=== PATIENT | male | born 1940 | race Caucasian/White ===

== ENCOUNTER 2017-07-04 02:37 | Inpatient (IN) ==
--- NOTE | 2017-07-04 03:05 | Emergency Department Note ---
Disposition Clinical Impression: Acute renal failure Qualifiers: Acute renal failure type: unspecified Qualified Code(s): N17.9 - Acute kidney failure, unspecified Disposition: Admitted As Inpatient Condition: Fair Referrals: Unassigned,Provider [Non-Partnered Physician] - Forms: ED Satisfaction Letter Time of Disposition: 04:59 SOB HPI - General Chief Complaint: ED Shortness of Breath/Dyspnea Stated Complaint: difficulty in breathing, needs oxygen Time Seen by Provider: 07/04/17 02:42 Source: patient Mode of arrival: EMS Limitations: no limitations Nursing Notes Reviewed: Yes Vital Signs Reviewed: Yes - History of Present Illness 77-year-old male presents to the ED complaining of needing oxygen and having shortness of breath. Patient does have a history of COPD or any respiratory issues. He states that he was discharged from [facility] inpatient service yesterday patient stated that she was having kidney issues in he needed a renal artery stent to be placed. He stated they did not place it because he was having kidney issues and there were now weight and do it and he was with follow-up with them today. He said that while he was there he was having a hard time breathing because they gave him a lot of fluids and a bloated him and he was having edema. He stated they discharged him without oxygen when he was on oxygen while in the hospital. He states that today he just felt like he needed some oxygen and would feel better once that occurred. So he drove to the [facility] think in the emergency department was open in hopes that he could sign up and get oxygen at home. When he arrived the fire department and there said no that the ER department is not open and for him to be transferred here to [facility] for further evaluation. Patient is not complaining of any pain or anything at this time. He has no nausea vomiting, no peritoneal delays, no urinary problems as patient diarrhea. He states he has no shortness of breath at this time as he felt like he just needed some oxygen. He does not have any abdominal pain but says he does feel bloated after all the fluid was put into them. He says he does have a cardiac history and has a pacemaker. Has had no cardiac issues as of lately. He has no headache or blurry vision at this time. Has no other complaints at this time. - Related Data Allergies Allergy/AdvReac Type Severity Reaction Status Date / Time niacin Allergy Unknown See Verified 07/04/17 02:45 Comments simvastatin Allergy Unknown See Verified 07/04/17 02:45 Comments morphine AdvReac Unknown See Verified 07/04/17 02:45 Comments Constitutional: Denies: fever, chills, weakness, weight change Eyes: Denies: eye pain, eye discharge, vision change ENT ED: Denies: ear pain, throat pain, dental pain, hearing loss, epistaxis, congestion, dysphagia Cardiovascular: Denies: chest pain, palpitations, dyspnea on exertion, edema, syncope Respiratory: Denies: cough, dyspnea, wheezes, hemoptysis, stridor Gastrointestinal: Denies: abdominal pain, nausea, vomiting, diarrhea, constipation, hematemesis, melena, hematochezia Genitourinary: Denies: urgency, dysuria, frequency, hematuria Musculoskeletal: Denies: back pain, neck pain, arthralgia, myalgia Integumentary: Denies: rash, abrasion, lesions Neurological: Denies: headache, weakness, numbness, paresthesias, confusion, abnormal gait, vertigo Psychiatric: Denies: anxiety, depression, suicidal thoughts, homicidal thoughts , auditory hallucinations, visual hallucinations Endocrine: Denies: fatigue Hematological/Lymphatic: Denies: easy bleeding, easy bruising Allergic/Immunologic: Denies: facial swelling, urticaria Past Medical History - Past Medical History Medical history: Reports: CHF, coronary artery disease, diabetes, hyperlipidemia , hypertension Psychiatric history: Reports: no psych history - Social History Smoking Status: Former smoker Alcohol use: Reports: none Drug use: Reports: none Physical Exam - General Limitations: no limitations General appearance: alert - Head Head exam: atraumatic, normocephalic, normal inspection - Eye Eye exam: Present: normal appearance, PERRL, EOMI - Expanded Eye Exam Pupils: Left: reactive - ENT ENT exam: normal exam, normal oropharynx, mucous membranes moist - Neck Neck exam: Present: normal inspection, full ROM, trachea midline - Chest Chest inspection: Present: normal inspection, symmetric chest wall rise - Respiratory Respiratory exam: Present: normal lung sounds bilaterally - Cardiovascular Cardiovascular exam: Present: regular rate, normal rhythm, normal heart sounds - Abdominal Exam Abdominal exam: Present: soft, Non-Tender, distention (Mildly distended abdomen) . Absent: tenderness, guarding, rebound, rigidity - Extremities Exam Extremities exam: Present: normal inspection, full ROM, normal capillary refill , pedal edema (2+ pitting edema bilaterally). Absent: tenderness - Back Exam Back exam: Present: normal inspection, full ROM. Absent: tenderness - Neurological Exam Neurological exam: Present: alert, oriented X3 - Skin Skin exam: Present: warm, dry, intact, normal color Course Course Narrative: Residual amount since the ED complaining of needing oxygen. He was discharged recently from [facility] inpatient service where he states he need a renal artery stent due to kidney problems did not have it. He states he is bloated because he got a time of fluids he was there. At this time we put him on 2 L oxygen by nasal cannula and his sats are 98%. When the oxygen is off he states that he feels like he cannot catch his breath. 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 We will do a further workup including basic labs as well as a BNP, VBG, EKG and chest x-ray. Due to him needing oxygen and he is not able to get that at home most likely this patient will need to be admitted for hypoxia and needing oxygen - Reevaluation(s) Reevaluation #1: He was reevaluated and we recommended that he needs to be admitted for acute renal failure patient understands this and agreed to this. Time: 04:56 - Consultations Consultation #1: Spoke with Dr. Zelaya the hospitalist who agreed to admit the patient to the medicine service for acute renal failure. Vital Signs Temperature 97.4 F L 07/04/17 02:39 Pulse Rate 62 07/04/17 02:39 Respiratory Rate 18 07/04/17 02:39 Blood Pressure 137/63 07/04/17 02:39 O2 Sat by Pulse Oximetry 100 07/04/17 02:39 Temperature 97.4 F L 07/04/17 02:39 Pulse Rate 59 07/04/17 03:37 Respiratory Rate 16 07/04/17 03:37 Blood Pressure 132/65 07/04/17 03:37 O2 Sat by Pulse Oximetry 98 07/04/17 03:37 Oxygen Delivery Oxygen Delivery Nasal Cannula Shortness of Breath/Dyspnea - MDM Narrative Medical decision making narrative: 77-year-old male presents to the ED with hypoxia. [facility] looking [facility]. When he came here he was on 2 L nasal cannula and satting 100%. We did basic labs and we find a reason for the hypoxia. He was in acute renal failure and seemed to be volume overloaded as he had 2+ pitting edema bilaterally in the legs. Chest x-ray was normal. EKG had no acute findings. He did have an elevated creatinine of 2.6. All other labs were normal. He did have an elevated d-dimer of 511 but age-adjusted was within normal limits. So there was no need to have a CT angiogram done of his chest to rule out pulmonary embolism. Patient is admitted to Dr. Zelaya of the medicine service for acute renal failure. Patient agrees with this plan. - Medical Records Medical records reviewed: Yes I reviewed the patient's medical records. - Lab Data Lab results reviewed: Yes I reviewed the patient's lab results. Result diagrams: 07/04/17 03:09 07/04/17 03:09 Lab Results 07/04/17 07/04/17 07/04/17 Range/Units 03:09 03:09 03:09 WBC 10.2 (4.3-11.1) K/mcL RBC 3.94 L (4.19-5.50) M/mcL Hgb 11.2 L (12.9-16.9) g/dL Hct 33.6 L (37.5-50.1) % MCV 85.3 (83.0-100.0) fL MCH 28.4 (28.0-33.3) pg MCHC 33.3 (31.6-35.5) g/dL RDW 14.6 H (11.5-14.5) % Plt Count 128 L (140-400) K/mcL MPV 11.8 (9.4-12.4) fL Immature Gran % 0.6 (0-4) % Seg Neutrophils % 77.8 % Lymphocytes % 11.8 % Monocytes % 7.1 % Eosinophils % 2.5 % Basophils % 0.2 % Neutrophils # 7.9 (1.6-8.9) K/mcL Lymphocytes # 1.2 (0.6-4.6) K/mcL Monocytes # 0.7 (0.0-1.3) K/mcL Eosinophils # 0.3 (0.0-0.6) K/mcL Basophils # 0.0 (0.0-0.2) K/mcL D-Dimer 511 H (0-500) ng/mLFEU VBG pH (7.32-7.42) pH Units VBG pCO2 (41-51) mmHg VBG pO2 (25-40) mmHg VBG HCO3 (21-27) mEq/L Sodium 135 L (136-145) mEq/L Potassium 3.8 (3.5-4.5) mEq/L Chloride 93 L (98-109) mEq/L Carbon Dioxide 28 (19-29) mEq/L BUN 41 H (8-26) mg/dL Creatinine 2.59 H (0.72-1.25) mg/dL Est GFR ( Amer) 29 L (> 60) Est GFR (Non-Af Amer) 24 L (> 60) BUN/Creatinine Ratio 16 (6-26) Glucose 235 H (70-99) mg/dL Calculated Osmolality 298 (280-300) Lactic Acid (0.5-2.2) mmol/L Calcium 9.3 (8.6-10.8) mg/dL Total Bilirubin 0.9 (0.2-1.2) mg/dL Direct Bilirubin 0.4 (0.0-0.5) mg/dL Indirect Bilirubin 0.5 (0.0-1.2) mg/dL AST 21 (5-34) Units/L ALT 28 (0-55) Units/L Alkaline Phosphatase 112 (38-126) Units/L Troponin I (0-0.03) ng/mL B-Natriuretic Peptide (0-100) pg/mL Serum Total Protein 6.7 (6.0-8.3) g/dL Albumin 3.6 (3.5-5.0) g/dL Globulin 3.1 (2.4-3.5) g/dL Albumin/Globulin Ratio 1.2 (1.1-2.2) 07/04/17 07/04/17 07/04/17 Range/Units 03:09 03:09 03:09 WBC (4.3-11.1) K/mcL RBC (4.19-5.50) M/mcL Hgb (12.9-16.9) g/dL Hct (37.5-50.1) % MCV (83.0-100.0) fL MCH (28.0-33.3) pg MCHC (31.6-35.5) g/dL RDW (11.5-14.5) % Plt Count (140-400) K/mcL MPV (9.4-12.4) fL Immature Gran % (0-4) % Seg Neutrophils % % Lymphocytes % % Monocytes % % Eosinophils % % Basophils % % Neutrophils # (1.6-8.9) K/mcL Lymphocytes # (0.6-4.6) K/mcL Monocytes # (0.0-1.3) K/mcL Eosinophils # (0.0-0.6) K/mcL Basophils # (0.0-0.2) K/mcL D-Dimer (0-500) ng/mLFEU VBG pH (7.32-7.42) pH Units VBG pCO2 (41-51) mmHg VBG pO2 (25-40) mmHg VBG HCO3 (21-27) mEq/L Sodium (136-145) mEq/L Potassium (3.5-4.5) mEq/L Chloride (98-109) mEq/L Carbon Dioxide (19-29) mEq/L BUN (8-26) mg/dL Creatinine (0.72-1.25) mg/dL Est GFR ( Amer) (> 60) Est GFR (Non-Af Amer) (> 60) BUN/Creatinine Ratio (6-26) Glucose (70-99) mg/dL Calculated Osmolality (280-300) Lactic Acid 1.1 (0.5-2.2) mmol/L Calcium (8.6-10.8) mg/dL Total Bilirubin (0.2-1.2) mg/dL Direct Bilirubin (0.0-0.5) mg/dL Indirect Bilirubin (0.0-1.2) mg/dL AST (5-34) Units/L ALT (0-55) Units/L Alkaline Phosphatase (38-126) Units/L Troponin I 0.03 (0-0.03) ng/mL B-Natriuretic Peptide 843 H (0-100) pg/mL Serum Total Protein (6.0-8.3) g/dL Albumin (3.5-5.0) g/dL Globulin (2.4-3.5) g/dL Albumin/Globulin Ratio (1.1-2.2) 07/04/17 Range/Units 03:22 WBC (4.3-11.1) K/mcL RBC (4.19-5.50) M/mcL Hgb (12.9-16.9) g/dL Hct (37.5-50.1) % MCV (83.0-100.0) fL MCH (28.0-33.3) pg MCHC (31.6-35.5) g/dL RDW (11.5-14.5) % Plt Count (140-400) K/mcL MPV (9.4-12.4) fL Immature Gran % (0-4) % Seg Neutrophils % % Lymphocytes % % Monocytes % % Eosinophils % % Basophils % % Neutrophils # (1.6-8.9) K/mcL Lymphocytes # (0.6-4.6) K/mcL Monocytes # (0.0-1.3) K/mcL Eosinophils # (0.0-0.6) K/mcL Basophils # (0.0-0.2) K/mcL D-Dimer (0-500) ng/mLFEU VBG pH 7.40 (7.32-7.42) pH Units VBG pCO2 59 H (41-51) mmHg VBG pO2 38 (25-40) mmHg VBG HCO3 36.5 H (21-27) mEq/L Sodium (136-145) mEq/L Potassium (3.5-4.5) mEq/L Chloride (98-109) mEq/L Carbon Dioxide (19-29) mEq/L BUN (8-26) mg/dL Creatinine (0.72-1.25) mg/dL Est GFR ( Amer) (> 60) Est GFR (Non-Af Amer) (> 60) BUN/Creatinine Ratio (6-26) Glucose (70-99) mg/dL Calculated Osmolality (280-300) Lactic Acid (0.5-2.2) mmol/L Calcium (8.6-10.8) mg/dL Total Bilirubin (0.2-1.2) mg/dL Direct Bilirubin (0.0-0.5) mg/dL Indirect Bilirubin (0.0-1.2) mg/dL AST (5-34) Units/L ALT (0-55) Units/L Alkaline Phosphatase (38-126) Units/L Troponin I (0-0.03) ng/mL B-Natriuretic Peptide (0-100) pg/mL Serum Total Protein (6.0-8.3) g/dL Albumin (3.5-5.0) g/dL Globulin (2.4-3.5) g/dL Albumin/Globulin Ratio (1.1-2.2) - Radiology Data Radiology results reviewed: Yes I reviewed the patient's radiology results. - EKG Data EKG attestation: Yes I reviewed and interpreted this EKG. EKG results narrative: This EKG was done at 0 253 and review myself and the attending. This shows no electrical atrial paced rhythm at a rate of 60 bpm, AR interval 312, QRS 141, QTC 513 with a normal axis. There are no acute ST or T wave changes this time. There is no old EKG to compare with at this time. My overall impression is a and electronic atrial paced rhythm with no acute changes. EKG shows normal: Reports: axis, intervals Rate: Reports: normal Rhythm: Reports: other (Atrial paced rhythm) [place]/QRS: Reports: normal Interpretation: Reports: no acute changes, normal EKG
--- NOTE | 2017-07-04 03:07 | Emergency Department Note ---
START Narrative - START START: I examined this patient and my medical decision-making was reviewed with the Resident Physician. I agree with the documented findings, disposition and treatment plan as described except to the extent set forth below. Male patient with concern for dyspnea and hypoxia. Obtain basic labs as well as chest x- ray. Disposition will be pending results of imaging and laboratory analyses. No acute distress at this time. No hypoxia on arrival.
[2017-07-04 03:16] LABS: Basophils % 0.2 %; Eosinophils # 0.3 K/mcL (0.0-0.6); Eosinophils % 2.5 %; Hematocrit 33.6 % (37.5-50.1); Hemoglobin 11.2 g/dL (12.9-16.9); Immature Granulocytes % 0.6 % (0-4); Lymphocytes # 1.2 K/mcL (0.6-4.6); Lymphocytes % 11.8 %; Mean Corpuscular HGB Conc 33.3 g/dL (31.6-35.5); Mean Corpuscular Hemoglobin 28.4 pg (28.0-33.3); Mean Corpuscular Volume 85.3 fL (83.0-100.0); Mean Platelet Volume 11.8 fL (9.4-12.4); Monocytes # 0.7 K/mcL (0.0-1.3); Monocytes % 7.1 %; Neutrophils # 7.9 K/mcL (1.6-8.9); Platelet Count 128 K/mcL (140-400); Red Blood Count 3.94 M/mcL (4.19-5.50); Red Cell Distribution Width 14.6 % (11.5-14.5); Segmented Neutrophils % 77.8 %
[2017-07-04 03:30] LABS: Albumin 3.6 g/dL (3.5-5.0); Albumin/Globulin Ratio 1.2 (1.1-2.2); Bilirubin,Direct 0.4 mg/dL (0.0-0.5); Bilirubin,Indirect 0.5 mg/dL (0.0-1.2); Bilirubin,Total 0.9 mg/dL (0.2-1.2); Calcium 9.3 mg/dL (8.6-10.8); Globulin 3.1 g/dL (2.4-3.5); Potassium 3.8 mEq/L (3.5-4.5); Total Protein 6.7 g/dL (6.0-8.3)
[2017-07-04 03:30] LABS: VBG HCO3 36.5 mEq/L (21-27); VBG PH 7.4 pH Units (7.32-7.42)
[2017-07-04] MEDS ORDERED: *HR* OxyCODONE Immed Rel 5 MG TABLET PO PRN (07:58)
[2017-07-04] MEDS ORDERED: Naloxone 0.4 MG/ML INJ IVP PRN (07:58)
[2017-07-04] MEDS ORDERED: Acetaminophen 325 MG TABLET PO PRN (07:58)
[2017-07-04] MEDS ORDERED: Ondansetron 4 MG/2 ML VIAL IVP PRN (07:58)
[2017-07-04] MEDS ORDERED: Ipratropium/Albuterol Neb 3 ML IH PRN (08:01)
[2017-07-04] MEDS ORDERED: Nitroglycerin 0.4 MG TAB.SUBL SL PRN (08:01)
--- NOTE | 2017-07-04 08:08 | Internal Med History&Physical ---
Date of Encounter: 07/04/17 Time of Encounter: 08:06 Assessment and Plan (1) Systolic and diastolic CHF, acute on chronic Current visit: Yes Status: Acute Hypoxic respiratory failure likely secondary to systolic and diastolic CHF exacerbation Likely related to acute renal failure Lasix 20 mg IV twice a day, strict I's and O's and daily weight Oxygen therapy Adjust dose of Lasix Omeprazole for GI prophylaxis and Eliquis for DVT prophylaxis. The patient will be admitted for observation. Full code. Time spent on this admission 40 minutes. High risk due to hypoxia (2) Acute renal failure superimposed on stage 3 chronic kidney disease Current visit: Yes Status: Acute Acute on chronic renal failure May decrease dose of Lasix or hold it if worsening Consider nephrology consultation not improving His renal failure may be caused also by his history of renal artery stenosis, follows at [facility] Qualifiers: Acute renal failure type: unspecified Qualified Code(s): N17.9 - Acute kidney failure, unspecified; N18.3 - Chronic kidney disease, stage 3 (moderate) (3) Diabetes Current visit: Yes Status: Acute Continue insulin sliding scale Qualifiers: Diabetes mellitus type: type 2 Diabetes mellitus complication status: with circulatory complication Diabetes mellitus complication detail: with other circulatory complications Diabetes mellitus half-way insulin use: with adjunct faculty for medical terminology use Qualified Code(s): E11.59 - Type 2 diabetes mellitus with other circulatory complications; 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 Pisano is a 77 year old male with a past medical history of diastolic and systolic CHF, COPD not oxygen dependent, CAD, chronic atrial fibrillation on Eliquis, who was just discharged from [facility] yesterday. The patient said that he was admitted in order to have a stent in his right femoral artery and one of his renal arteries, unfortunately his creatinine worsened during his stay at [facility]. His last creatinine over there was 1.8 and today over here is 2.59, BNP is 843, chest x-ray shows minimal congestion with a right lower lobe linear opacity likely atelectasis . D-dimer was 511 but was normal once the number was adjusted to his age. [facility], he was hypoxic desaturating down to the 80s. Complaining of difficulty breathing since yesterday. Denies any other complaints Past Med Surg Social Fam HX - Past Medical History Medical history: CHF (Systolic and diastolic, last echocardiogram at this time see from March 2017 shows an ejection fraction of 50-54%, before that he was 45%) , COPD (Not oxygen dependent), coronary artery disease (Status post CABG), CVA, diabetes (Insulin-dependent), hyperlipidemia, hypertension, peripheral artery disease, renal disease (Chronic kidney disease stage III), other (Chronic atrial fibrillation on anticoagulation with Eliquis, peripheral artery disease, gout) Psychiatric history: no psych history - Past Surgical History Surgical History: angioplasty/stent, cholecystectomy, coronary bypass (CABG), LE stent(s), pacemaker/AICD, other (Endarterectomies) - Social History Smoking Status: Former smoker Alcohol use: none Drug use: none - Additional Family History Additional family history: Father with CAD. Medications: Eliquis 5 mg twice a day, allopurinol 200 mg daily, amiodarone 200 mg daily, aspirin 81 mg daily, atorvastatin 80 mg daily, carvedilol 25 minutes twice a day, Plavix, Lasix 40 mg daily, isosorbide mononitrate 60 mg daily, Lantus 22 units in the morning, OxyContin 10 mg twice a day, Tradjenta family is daily, nitroglycerin as needed Internal Medicine - H&P: Meds 3 Allergy/AdvReac Type Severity Reaction Status Date / Time niacin Allergy Unknown See Verified 07/04/17 02:45 Comments simvastatin Allergy Unknown See Verified 07/04/17 02:45 Comments morphine AdvReac Unknown See Verified 07/04/17 02:45 Comments All Systems PM: A 10-system review of systems was performed and is negative for pertinent findings except as documented above in the HPI. Review of systems: No chest pain, no abdominal pain, no dysuria. Says that his legs have been more swollen especially his abdomen has become more swollen than usual. Other systems out of the 10 reviewed were negative - Constitutional Vitals: Temp Pulse Resp BP Pulse Ox 97.5 F L 71 16 129/68 97 09/08/17 05:58 07/04/17 05:58 07/04/17 05:58 07/04/17 05:58 07/04/17 05:58 General appearance: Present: A&O X 3 - Head Head exam: Present: atraumatic, normocephalic - Eye Eye exam: Present: PERRL, conjuntiva pink, sclera anicteric Pupils: Present: PERRL - Neck Neck exam general surgery: Present: supple, trachea midline. Absent: lymphadenopathy - Respiratory Respiratory exam: Present: CTAB, rales (Minimal bibasilar fine crackles). Absent: accessory muscle use, rhonchi, wheezes - Cardiovascular Cardiovascular exam: Present: RRR, +S1, +S2. Absent: diastolic murmur, gallop, rubs, systolic murmur - GI/Abdominal GI/Abdominal exam: Present: distended (Abdominal distention), normal bowel sounds, soft, no peritoneal signs. Absent: tenderness - Extremities Exam Extremities exam: Present: pedal edema (+1 nonpitting edema in both lower extremities), warm, radial pulses palpable and symmetrical. Absent: calf tenderness, cyanotic - Neurological Exam Neurological exam: Present: CN II-XII intact, oriented X3, no focal deficits. Absent: pronater drift, facial droop, speech deficit - Skin Skin exam: Present: dry, intact Internal Med - H&P Results - Labs CBC & Chem 7: 07/04/17 03:09 07/04/17 03:09
[2017-07-04] MEDS: Insulin DETEMIR 100 UNIT/ML X5UNITS SQ SCH (09:08)
[2017-07-04] MEDS: Isosorbide MONOnitrate (24 HR) 60 MG TAB.ER.24H PO SCH (09:09)
[2017-07-04] MEDS: Aspirin Enteric Coated 81 MG Tablet PO SCH (09:09)
[2017-07-04] MEDS: APIXABAN 5 MG TABLET PO SCH ×2 (09:09→20:06)
[2017-07-04] MEDS: *HR* Amiodarone 200 MG TABLET PO SCH (09:09)
[2017-07-04] MEDS ORDERED: Dextrose Gel 15 GM PO PRN ×2 (09:10)
[2017-07-04] MEDS ORDERED: D5% in Water 1,000 ML IVC PRN (09:10)
[2017-07-04] MEDS: Lactulose Oral Soln 20 GM/30 ML UDC PO SCH ×2 (09:10→20:06)
[2017-07-04] MEDS ORDERED: *HR* Dextrose 50 % in Water (Syg) 50 ML SYRINGE IVP PRN (09:10)
[2017-07-04] MEDS: Furosemide 20 MG/2 ML VIAL IVP SCH ×2 (09:11→20:06)
[2017-07-04] MEDS: Insulin LISPRO 300 UNITS/3 ML VIAL SQ SCH ×3 (11:16→21:00)
--- NOTE | 2017-07-04 15:43 | Electrocardiograph Report ---
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
[2017-07-04] MEDS: *HR* OxyCODONE ER (12 HR) 10 MG TABLET PO SCH (16:40)
[2017-07-05] MEDS: *HR* OxyCODONE ER (12 HR) 10 MG TABLET PO SCH ×2 (05:44→17:15)
[2017-07-05 05:54] LABS: Hematocrit 31.2 % (37.5-50.1); Hemoglobin 10.4 g/dL (12.9-16.9); Mean Corpuscular HGB Conc 33.3 g/dL (31.6-35.5); Mean Corpuscular Hemoglobin 28.9 pg (28.0-33.3); Mean Corpuscular Volume 86.7 fL (83.0-100.0); Mean Platelet Volume 12.7 fL (9.4-12.4); Platelet Count 124 K/mcL (140-400); Red Cell Distribution Width 14.6 % (11.5-14.5)
[2017-07-05 06:06] LABS: Potassium 3.7 mEq/L (3.5-4.5)
[2017-07-05] MEDS: Isosorbide MONOnitrate (24 HR) 60 MG TAB.ER.24H PO SCH (07:54)
[2017-07-05] MEDS: Furosemide 20 MG/2 ML VIAL IVP SCH (07:54)
[2017-07-05] MEDS: Lactulose Oral Soln 20 GM/30 ML UDC PO SCH ×2 (07:54→21:42)
[2017-07-05] MEDS: Aspirin Enteric Coated 81 MG Tablet PO SCH (07:55)
[2017-07-05] MEDS: Insulin LISPRO 300 UNITS/3 ML VIAL SQ SCH ×4 (07:55→21:43)
[2017-07-05] MEDS: Insulin DETEMIR 100 UNIT/ML X5UNITS SQ SCH (07:55)
[2017-07-05] MEDS: APIXABAN 5 MG TABLET PO SCH ×2 (07:55→21:43)
[2017-07-05] MEDS: *HR* Amiodarone 200 MG TABLET PO SCH (07:55)
[2017-07-05] MEDS: Spironolactone 25 MG TABLET PO SCH (11:57)
--- NOTE | 2017-07-05 13:13 | Internal Med Progress Note ---
<Mary AnnWallace - Last Filed: 07/05/17 13:09> Date of Encounter: 07/05/17 Time of Encounter: 08:00 - Assessment and plan (1) Acute renal failure superimposed on stage 3 chronic kidney disease Current Visit: Yes Status: Acute Assessment and plan: - Reported history of stage III chronic kidney disease - BUN/creatinine on admission was 41/2.59, this morning was 43/3.09 - Possible etiologies include diabetic nephropathy versus hypertension versus reported renal artery stenosis? - Continue IV Lasix for gentle diuresis, decrease dosage to 20 mg IV daily - Add spironolactone 25 mg daily - We will consider nephrology consults if condition does not improve - We will rule out post obstructive etiologies with bladder scan and retroperitoneal ultrasound this afternoon Qualifiers: Acute renal failure type: unspecified Qualified Code(s): N17.9 - Acute kidney failure, unspecified; N18.3 - Chronic kidney disease, stage 3 (moderate) (2) Systolic and diastolic CHF, acute on chronic Current Visit: Yes Status: Acute Assessment and plan: - Self-reported history of systolic and diastolic CHF, no records available, have requested records from [facility] - Chest x-ray in the emergency department showed stable cardiomegaly without active process, generalized lower extremity and abdominal edema, resolved upper extremity edema - BNP of 843, troponin negative - Continue Lasix 20 mg IV daily - Strict I's and O's - Supplemental oxygen as needed (3) Diabetes Current Visit: Yes Status: Acute Assessment and plan: - Most recent blood sugar of 138 - Low-dose Sliding-scale insulin - We will obtain A1c Qualifiers: Diabetes mellitus type: type 2 Diabetes mellitus complication status: with circulatory complication Diabetes mellitus complication detail: with other circulatory complications 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 Qualified Code(s): E11.59 - Type 2 diabetes mellitus with other circulatory complications; Z79.4 - retirement (current) use of insulin (4) A-fib Current Visit: Yes Status: Acute Assessment and plan: - Rate controlled at 65 bpm - Anticoagulated on eliquis - Continue carvedilol 25 mg twice a day Qualifiers: Atrial fibrillation type: chronic Qualified Code(s): I48.2 - Chronic atrial fibrillation (5) Peripheral artery disease Current Visit: Yes Status: Acute Assessment and plan: - Stable, continue home meds (6) DVT prophylaxis Current Visit: Yes Status: Acute Assessment and plan: Anticoagulated on eliquis for atrial fibrillation - Time Spent With Patient 25 - 35 minutes - Subjective Interval history: Patient was seen and examined at bedside this morning. He states he is feeling better this morning, without any complaints of shortness of breath, cough, fevers, chills. He is speaking in full sentences on 2.5 L of supplemental auction. He states his shortness of breath is improved and he is complaining of only mild lower extremity edema at this time. He reports he was recently discharged from [facility] and was told that he may need a stent in his leg and/or kidney. We are attempting to obtain their records. - Constitutional Vitals: Temp Pulse Resp BP Pulse Ox 98.1 F 63 18 105/55 94 07/05/17 10:50 07/05/17 10:50 07/05/17 10:50 07/05/17 10:50 07/05/17 10:50 General appearance: Present: A&O X 3 Exam: Gen.: Vitals noted. No acute distress. AAOx3, speaking in full sentences HEENT: PERRL/EOMI, oropharynx clear, Normocephalic, atraumatic, MMM Neck: Supple. No adenopathy. Cardiac: RRR, no murmur, +S1/S2 Pulmonary: Bilateral rales in lower lobes Abdomen: possible mild fluid wave, soft, nontender, BS noted, no guarding Back: Nontender throughout. MSK: ROM intact, no joint swelling noted Extremities: no BLE edema appreciated, nontender calf, no cyanosis or clubbing Neuro: A&Ox3, moves all extremities, no focal deficits Psych: Appropriate mood and behavior Internal Medicine: Result - Labs CBC & Chem 7: 07/05/17 04:38 07/05/17 04:38 Labs: Short CBC 07/05/17 Range/Units 04:38 WBC 10.5 (4.3-11.1) K/mcL Hgb 10.4 L (12.9-16.9) g/dL Hct 31.2 L (37.5-50.1) % Plt Count 124 L (140-400) K/mcL BMP 07/05/17 04:38 Sodium 140 Potassium 3.7 Chloride 98 Carbon Dioxide 30 H BUN 43 H Creatinine 3.09 H Glucose 138 H Calcium 9.0 - ABG Interpretation ABG results: PT/INR, D-dimer D-Dimer 511 ng/mLFEU (0-500) H 07/04/17 03:09 Consult Discharge Plan - Plan [facility]errals: [facility] [Primary Care Provider[facility] - 07/14/17 10:00 am (Please fax driss paper work to [phone]-the [facility]) <Joshua Anderson - Last Filed: 07/05/17 18:20> Date of Encounter: 07/05/17 - Assessment and plan (1) Systolic and diastolic CHF, acute on chronic Current Visit: Yes Status: Acute (2) A-fib Current Visit: Yes Status: Acute Qualifiers: Atrial fibrillation type: chronic Qualified Code(s): I48.2 - Chronic atrial fibrillation (3) Acute renal failure superimposed on stage 3 chronic kidney disease Current Visit: Yes Status: Acute Qualifiers: Acute renal failure type: unspecified Qualified Code(s): N17.9 - Acute kidney failure, unspecified; N18.3 - Chronic kidney disease, stage 3 (moderate) (4) Diabetes Current Visit: Yes Status: Acute Qualifiers: Diabetes mellitus type: type 2 Diabetes mellitus complication status: with circulatory complication Diabetes mellitus complication detail: with other circulatory complications Diabetes mellitus residential insulin use: with residential use Qualified Code(s): E11.59 - Type 2 diabetes mellitus with other circulatory complications; 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 (5) Peripheral artery disease Current Visit: Yes Status: Acute - Constitutional Vitals: Temp Pulse Resp BP Pulse Ox 98.4 F 66 16 110/59 96 07/05/17 15:54 07/05/17 15:54 07/05/17 15:54 07/05/17 15:54 07/05/17 15:54 Internal Medicine: Result - Labs CBC & Chem 7: 07/05/17 04:38 07/05/17 04:38 Labs: Short CBC 07/05/17 Range/Units 04:38 WBC 10.5 (4.3-11.1) K/mcL Hgb 10.4 L (12.9-16.9) g/dL Hct 31.2 L (37.5-50.1) % Plt Count 124 L (140-400) K/mcL BMP 07/05/17 04:38 Sodium 140 Potassium 3.7 Chloride 98 Carbon Dioxide 30 H BUN 43 H Creatinine 3.09 H Glucose 138 H Calcium 9.0 - ABG Interpretation ABG results: PT/INR, D-dimer D-Dimer 511 ng/mLFEU (0-500) H 07/04/17 03:09 - Impressions Impressions Retroperitoneum Ultrasound 07/05/17 15:00 IMPRESSION: Unremarkable ultrasound of the kidneys. Specifically, no hydronephrosis. D/ / Wallace Chavis / Wallace Chavis Interpreting Provider: Wallace Chavis - Attending Attestation I examined this patient and my medical decision-making was reviewed with the Resident Physician on 07/05/17. I agree with the documented findings, disposition and treatment plan as described except to the extent set forth below. Mr. Pisano is currently in observation for acute exac CHF and KELLI on CKD. He remains moderate to high risk due to potential for worsening resp status. Mr. Pisano feels somewhat better today. He is concerned about kidneys and heart. No fever or chills. No CP. Exam Alert. Comfortable Mucus membranes dry Heart reg No wheeze. Abd soft Some edema present I/P 1. CHF exac 2. CKD Further diagnoses and plan as above.
[2017-07-06] MEDS: *HR* OxyCODONE ER (12 HR) 10 MG TABLET PO SCH ×2 (05:32→18:25)
[2017-07-06 07:46] LABS: Hematocrit 28.8 % (37.5-50.1); Hemoglobin 9.2 g/dL (12.9-16.9); Mean Corpuscular HGB Conc 31.9 g/dL (31.6-35.5); Mean Corpuscular Hemoglobin 27.7 pg (28.0-33.3); Mean Corpuscular Volume 86.7 fL (83.0-100.0); Mean Platelet Volume 12.3 fL (9.4-12.4); Platelet Count 120 K/mcL (140-400); Red Blood Count 3.32 M/mcL (4.19-5.50); Red Cell Distribution Width 14.7 % (11.5-14.5)
[2017-07-06 07:49] LABS: Calcium 8.8 mg/dL (8.6-10.8); Potassium 3.7 mEq/L (3.5-4.5)
[2017-07-06] MEDS: Lactulose Oral Soln 20 GM/30 ML UDC PO SCH ×2 (08:30→21:16)
[2017-07-06] MEDS: *HR* Amiodarone 200 MG TABLET PO SCH (08:30)
[2017-07-06] MEDS: Aspirin Enteric Coated 81 MG Tablet PO SCH (08:30)
[2017-07-06] MEDS: APIXABAN 5 MG TABLET PO SCH ×2 (08:30→21:15)
[2017-07-06] MEDS: Spironolactone 25 MG TABLET PO SCH (08:30)
[2017-07-06] MEDS: Isosorbide MONOnitrate (24 HR) 60 MG TAB.ER.24H PO SCH (08:30)
[2017-07-06] MEDS: Insulin LISPRO 300 UNITS/3 ML VIAL SQ SCH ×4 (08:31→21:26)
[2017-07-06] MEDS: Furosemide 20 MG/2 ML VIAL IVP SCH (08:31)
[2017-07-06] MEDS: Insulin DETEMIR 100 UNIT/ML X5UNITS SQ SCH (08:46)
--- NOTE | 2017-07-06 08:54 | Internal Med Progress Note ---
<Wallace Reese - Last Filed: 07/06/17 10:29> Date of Encounter: 07/06/17 Time of Encounter: 08:52 - Assessment and plan (1) Acute renal failure superimposed on stage 3 chronic kidney disease Current Visit: Yes Status: Acute Assessment and plan: - Reported history of stage III chronic kidney disease, request for old medical records pending - BUN/creatinine on admission was 41/2.59, this morning was 42/2.64. Improved - Possible etiologies include diabetic nephropathy versus hypertension versus reported renal artery stenosis and he reports from [facility] - We will consider nephrology consults if condition does not improve. - Retroperitoneal ultrasound yesterday was unremarkable, post void volume bladder scan was 160 mL, unlikely obstructive etiology Qualifiers: Acute renal failure type: unspecified Qualified Code(s): N17.9 - Acute kidney failure, unspecified; N18.3 - Chronic kidney disease, stage 3 (moderate) (2) Systolic and diastolic CHF, acute on chronic Current Visit: Yes Status: Acute Assessment and plan: - Self-reported history of systolic and diastolic CHF, no records available, have requested records from [facility] - Chest x-ray in the emergency department showed stable cardiomegaly without active process, generalized lower extremity and abdominal edema, resolved upper extremity edema - BNP of 843, troponin negative - Currently tolerating room air without complaints. No further lower extremity edema - Continue Lasix 20 mg IV daily - Strict I's and O's. Essentially even yesterday. - Supplemental oxygen as needed (3) Diabetes Current Visit: Yes Status: Acute Assessment and plan: - Most recent blood sugar of 128 - Low-dose Sliding-scale insulin - We will obtain A1c Qualifiers: Diabetes mellitus type: type 2 Diabetes mellitus complication status: with circulatory complication Diabetes mellitus complication detail: with other circulatory complications Diabetes mellitus retirement insulin use: with retirement use Qualified Code(s): E11.59 - Type 2 diabetes mellitus with other circulatory complications; Z79.4 - care home (current) use of insulin (4) A-fib Current Visit: Yes Status: Acute Assessment and plan: - Rate controlled at 64 bpm - Anticoagulated on eliquis - Continue carvedilol 25 mg twice a day Qualifiers: Atrial fibrillation type: chronic Qualified Code(s): I48.2 - Chronic atrial fibrillation (5) Peripheral artery disease Current Visit: Yes Status: Acute Assessment and plan: - Stable, continue home meds (6) DVT prophylaxis Current Visit: Yes Status: Acute Assessment and plan: Anticoagulated on eliquis for atrial fibrillation - Time Spent With Patient 25 - 35 minutes - Subjective Interval history: Patient was seen and examined at bedside this morning. He states he is feeling "pretty good" and has no complaints at this time. His breathing is improved and he is on room air speaking in full sentances. He denies any symptoms of f/c, SOB , CP. He states he moved his bowels twice yesterday which is a little unusual for him but denies diarrhea, blood. - Constitutional Vitals: Temp Pulse Resp BP Pulse Ox 98.1 F 61 17 111/52 93 07/06/17 07:23 07/06/17 07:23 07/06/17 07:23 07/06/17 07:23 07/06/17 07:23 General appearance: Present: A&O X 3 Exam: Gen.: Vitals noted. No acute distress. AAOx3 HEENT: PERRL/EOMI, oropharynx clear, Normocephalic, atraumatic, moist mucous membranes Neck: Supple. No adenopathy. Cardiac: RRR, no murmur, +S1/S2 Pulmonary: Mild Rales in left lower base otherwise CTA bilaterally, no wheezes, rales or rhonchi, equal chest expansion Abdomen: soft, nontender, BS noted, no guarding Back: Nontender throughout. MSK: ROM intact, no joint swelling noted Extremities: no BLE edema, nontender calf, no cyanosis or clubbing Neuro: A&Ox3, moves all extremities, no focal deficits Psych: Appropriate mood and behavior Internal Medicine: Result - Labs CBC & Chem 7: 07/06/17 06:32 07/06/17 06:32 Labs: Short CBC 07/06/17 Range/Units 06:32 WBC 8.1 (4.3-11.1) K/mcL Hgb 9.2 L (12.9-16.9) g/dL Hct 28.8 L (37.5-50.1) % Plt Count 120 L (140-400) K/mcL [facility] 07/06/17 06:32 Sodium 139 Potassium 3.7 Chloride 98 Carbon Dioxide 33 H BUN 42 H Creatinine 2.64 H Glucose 128 H Calcium 8.8 - ABG Interpretation ABG results: PT/INR, D-dimer D-Dimer 511 ng/mLFEU (0-500) H 07/04/17 03:09 - Impressions Impressions Retroperitoneum Ultrasound 07/05/17 15:00 IMPRESSION: Unremarkable ultrasound of the kidneys. Specifically, no hydronephrosis. D/ / Wallace Chavis / Wallace Chavis Interpreting Provider: Wallace Chavis Consult Discharge Plan - Plan Referrals: [facility],PCP [Primary Care Provider] - 07/14/17 10:00 am (Please fax [employer] paper work to [phone]-the [facility]) <Joshua Anderson - Last Filed: 07/06/17 16:32> Date of Encounter: 07/06/17 - Assessment and plan (1) Systolic and diastolic CHF, acute on chronic Current Visit: Yes Status: Acute (2) A-fib Current Visit: Yes Status: Acute Qualifiers: Atrial fibrillation type: chronic Qualified Code(s): I48.2 - Chronic atrial fibrillation (3) Acute renal failure superimposed on stage 3 chronic kidney disease Current Visit: Yes Status: Acute Qualifiers: Acute renal failure type: unspecified Qualified Code(s): N17.9 - Acute kidney failure, unspecified; N18.3 - Chronic kidney disease, stage 3 (moderate) (4) Diabetes Current Visit: Yes Status: Acute Qualifiers: Diabetes mellitus type: type 2 Diabetes mellitus complication status: with circulatory complication Diabetes mellitus complication detail: with other circulatory complications 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 Qualified Code(s): E11.59 - Type 2 diabetes mellitus with other circulatory complications; Z79.4 - care home (current) use of insulin (5) Peripheral artery disease Current Visit: Yes Status: Acute - Constitutional Vitals: Temp Pulse Resp BP Pulse Ox 98.6 F 64 16 120/64 93 07/06/17 15:44 07/06/17 15:44 07/06/17 15:44 07/06/17 15:44 07/06/17 15:44 Internal Medicine: Result - Labs CBC & Chem 7: 07/06/17 06:32 07/06/17 06:32 Labs: Short CBC 07/06/17 Range/Units 06:32 WBC 8.1 (4.3-11.1) K/mcL Hgb 9.2 L (12.9-16.9) g/dL Hct 28.8 L (37.5-50.1) % Plt Count 120 L (140-400) K/mcL BMP 07/06/17 06:32 Sodium 139 Potassium 3.7 Chloride 98 Carbon Dioxide 33 H BUN 42 H Creatinine 2.64 H Glucose 128 H Calcium 8.8 - ABG Interpretation ABG results: PT/INR, D-dimer D-Dimer 511 ng/mLFEU (0-500) H 07/04/17 03:09 - Impressions Impressions Retroperitoneum Ultrasound 07/05/17 15:00 IMPRESSION: Unremarkable ultrasound of the kidneys. Specifically, no hydronephrosis. D/ / Wallace Chavis / Wallace Chvais Interpreting Provider: Wallace Chavis - Attending Attestation I examined this patient and my medical decision-making was reviewed with the Resident Physician on 07/06/17. I agree with the documented findings, disposition and treatment plan as described except to the extent set forth below. Mr Pisano is currently admitted for acute exac CHF and KELLI. He remains moderate to high risk due to potential for worsening respiratory status. Mr Pisano feels more dyspneic today. Nose is congested. Coughing some. Oxygen saturation is good. Negative fluid balance. Renal function improved today. Exam Alert. Comfortable Mucus membranes dry Heart irreg Lungs with some rhonchi Abd soft Some edema present. I/P 1. Hypoxia 2. CHF Further diagnoses and plan as above. Awaiting records from [facility].
[2017-07-06] MEDS: Saline Nasal Spray 44 ML BOTTLE NS PRN (18:25)
[2017-07-07 03:03] LABS: Hematocrit 31.1 % (37.5-50.1); Mean Corpuscular HGB Conc 32.2 g/dL (31.6-35.5); Mean Corpuscular Hemoglobin 28.1 pg (28.0-33.3); Mean Corpuscular Volume 87.4 fL (83.0-100.0); Mean Platelet Volume 11.3 fL (9.4-12.4); Platelet Count 127 K/mcL (140-400); Red Blood Count 3.56 M/mcL (4.19-5.50); Red Cell Distribution Width 14.7 % (11.5-14.5)
[2017-07-07 03:17] LABS: Hemoglobin A1C 8.1 %
[2017-07-07 03:18] LABS: Potassium 3.7 mEq/L (3.5-4.5)
[2017-07-07] MEDS: *HR* OxyCODONE ER (12 HR) 10 MG TABLET PO SCH ×2 (05:25→16:51)
[2017-07-07] MEDS: Insulin LISPRO 300 UNITS/3 ML VIAL SQ SCH ×4 (07:56→21:09)
[2017-07-07] MEDS: APIXABAN 5 MG TABLET PO SCH ×2 (08:04→21:10)
[2017-07-07] MEDS: Lactulose Oral Soln 20 GM/30 ML UDC PO SCH ×2 (08:04→21:10)
[2017-07-07] MEDS: Aspirin Enteric Coated 81 MG Tablet PO SCH (08:04)
[2017-07-07] MEDS: Furosemide 20 MG/2 ML VIAL IVP SCH (08:05)
[2017-07-07] MEDS: Spironolactone 25 MG TABLET PO SCH (08:05)
[2017-07-07] MEDS: Isosorbide MONOnitrate (24 HR) 60 MG TAB.ER.24H PO SCH (08:05)
[2017-07-07] MEDS: *HR* Amiodarone 200 MG TABLET PO SCH (08:05)
[2017-07-07] MEDS: Insulin DETEMIR 100 UNIT/ML X5UNITS SQ SCH (08:09)
--- NOTE | 2017-07-07 13:08 | Internal Med Progress Note ---
<Wallace Reese - Last Filed: 07/07/17 13:11> Date of Encounter: 07/07/17 Time of Encounter: 09:00 - Assessment and plan (1) Acute renal failure superimposed on stage 3 chronic kidney disease Current Visit: Yes Status: Acute Assessment and plan: - Reported history of stage III chronic kidney disease, per discussion with nephrology who he follows with, creatinine was 2.51 in April of this year - BUN/creatinine on admission was 41/2.59, this morning was 37/2.44, continues to improve - Possible etiologies include diabetic nephropathy versus hypertension versus reported renal artery stenosis - We will consider nephrology consults if condition does not improve. - Retroperitoneal ultrasound yesterday was unremarkable, post void volume bladder scan was 160 mL, unlikely obstructive etiology - Continue gentle diuresis with Lasix 20 mg IV daily and spironolactone 25 Qualifiers: Acute renal failure type: unspecified Qualified Code(s): N17.9 - Acute kidney failure, unspecified; N18.3 - Chronic kidney disease, stage 3 (moderate) (2) Systolic and diastolic CHF, acute on chronic Current Visit: Yes Status: Acute Assessment and plan: - Self-reported history of systolic and diastolic CHF, record showing gated ejection fraction of 35% on nuclear stress test - Chest x-ray in the emergency department showed stable cardiomegaly without active process, generalized lower extremity and abdominal edema, resolved upper extremity edema - BNP of 843, troponin negative - Currently tolerating room air without complaints. No further lower extremity edema - Continue Lasix 20 mg IV daily, spironolactone 25 mg daily - Strict I's and O's. Essentially even yesterday. - Supplemental oxygen as needed (3) Diabetes Current Visit: Yes Status: Acute Assessment and plan: - Most recent blood sugar of 128 - Low-dose Sliding-scale insulin - A1c of 8.1% Qualifiers: Diabetes mellitus type: type 2 Diabetes mellitus complication status: with circulatory complication Diabetes mellitus complication detail: with other circulatory complications Diabetes mellitus detention insulin use: with detention use Qualified Code(s): E11.59 - Type 2 diabetes mellitus with other circulatory complications; Z79.4 - custodial (current) use of insulin (4) A-fib Current Visit: Yes Status: Acute Assessment and plan: - Rate controlled at 59 bpm - Anticoagulated on eliquis - Continue carvedilol 25 mg twice a day Qualifiers: Atrial fibrillation type: chronic Qualified Code(s): I48.2 - Chronic atrial fibrillation (5) Peripheral artery disease Current Visit: Yes Status: Acute Assessment and plan: - Stable, continue home meds (6) DVT prophylaxis Current Visit: Yes Status: Acute Assessment and plan: Anticoagulated on eliquis for atrial fibrillation - Time Spent With Patient 25 - 35 minutes - Subjective Interval history: Patient was seen and examined at bedside this morning. He denies any current complaints and states that his shortness of breath has resolved. He denies any symptoms of fevers, chills, chest pain. He is agreeable to participate in physical therapy and occupational therapy this afternoon. is present at bedside this morning, and states that his baseline creatinine is around 1. 9-2. - Constitutional Vitals: Temp Pulse Resp BP Pulse Ox 97.9 F 60 17 116/57 98 07/07/17 11:49 07/07/17 11:49 07/07/17 11:49 07/07/17 11:49 07/07/17 11:49 General appearance: Present: A&O X 3 Exam: Gen.: Vitals noted. No acute distress. AAOx3 HEENT: PERRL/EOMI, oropharynx clear, Normocephalic, atraumatic Neck: Supple. No adenopathy. Cardiac: Irregularly irregular, no murmur, +S1/S2 Pulmonary: CTA bilaterally, no wheezes, rales or rhonchi, equal chest expansion. Left lower lobe with mild rales. Abdomen: soft, nontender, BS noted, no guarding Back: Nontender throughout. MSK: ROM intact, no joint swelling noted Extremities: no BLE edema, nontender calf, no cyanosis or clubbing Neuro: A&Ox3, moves all extremities, no focal deficits Psych: Appropriate mood and behavior Internal Medicine: Result - Labs CBC & Chem 7: 07/07/17 02:52 07/07/17 02:52 Labs: Short CBC 07/07/17 Range/Units 02:52 WBC 7.9 (4.3-11.1) K/mcL Hgb 10.0 L (12.9-16.9) g/dL Hct 31.1 L (37.5-50.1) % Plt Count 127 L (140-400) K/mcL BMP 07/07/17 02:52 Sodium 142 Potassium 3.7 Chloride 100 Carbon Dioxide 33 H BUN 37 H Creatinine 2.44 H Glucose 97 Calcium 9.0 - ABG Interpretation ABG results: PT/INR, D-dimer D-Dimer 511 ng/mLFEU (0-500) H 07/04/17 03:09 Consult Discharge Plan - Plan [facility]errals: [facility] [Primary Care Provider] - 07/14/17 10:00 am (Please fax L[employer] paper work to [phone]-the [facility]) <Joshua Anderson - Last Filed: 07/07/17 17:32> Date of Encounter: 07/07/17 - Assessment and plan (1) Systolic and diastolic CHF, acute on chronic Current Visit: Yes Status: Acute (2) A-fib Current Visit: Yes Status: Acute Qualifiers: Atrial fibrillation type: chronic Qualified Code(s): I48.2 - Chronic atrial fibrillation (3) CKD (chronic kidney disease) stage 3, GFR 30-59 ml/min Current Visit: Yes Status: Acute (4) Diabetes Current Visit: Yes Status: Acute Qualifiers: Diabetes mellitus type: type 2 Diabetes mellitus complication status: with circulatory complication Diabetes mellitus complication detail: with other circulatory complications Diabetes mellitus watermaster insulin 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: with watermaster 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 Qualified Code(s): E11.59 - Type 2 diabetes mellitus with other circulatory complications; Z79.4 - custodial (current) use of insulin (5) Peripheral artery disease Current Visit: Yes Status: Acute - Constitutional Vitals: Temp Pulse Resp BP Pulse Ox 98.5 F 60 16 116/62 94 07/07/17 15:43 07/07/17 15:43 07/07/17 15:43 07/07/17 15:43 07/07/17 15:43 Internal Medicine: Result - Labs CBC & Chem 7: 07/07/17 02:52 07/07/17 02:52 Labs: Short CBC 07/07/17 Range/Units 02:52 WBC 7.9 (4.3-11.1) K/mcL Hgb 10.0 L (12.9-16.9) g/dL Hct 31.1 L (37.5-50.1) % Plt Count 127 L (140-400) K/mcL BMP 07/07/17 02:52 Sodium 142 Potassium 3.7 Chloride 100 Carbon Dioxide 33 H BUN 37 H Creatinine 2.44 H Glucose 97 Calcium 9.0 - ABG Interpretation ABG results: PT/INR, D-dimer D-Dimer 511 ng/mLFEU (0-500) H 07/04/17 03:09 - Attending Attestation I examined this patient and my medical decision-making was reviewed with the Resident Physician on 07/07/17. I agree with the documented findings, disposition and treatment plan as described except to the extent set forth below. Mr. Pisano is currently admitted for acute exac CHF and renal failure. He remains moderate to high risk due to potential for worsening respiratory status. Mr Pisano feels OK today. His breathing is about the same. Records here from [facility] - does have R renal stenosis. Has seen Dr. Paz office before. No fever or chills. Renal function about baseline. Exam Alert. Comfortable Mucus membranes dry Heart not tachy No wheeze Abd soft I/P 1. CHF 2. CKD Further diagnoses and plan as above. Anticipate d/c soon with outpatient appt with renal to discuss any further need for vascular intervention.
[2017-07-08] MEDS: Saline Nasal Spray 44 ML BOTTLE NS PRN (02:06)
[2017-07-08 03:57] LABS: Hematocrit 31.6 % (37.5-50.1); Hemoglobin 10.2 g/dL (12.9-16.9); Mean Corpuscular HGB Conc 32.3 g/dL (31.6-35.5); Mean Corpuscular Hemoglobin 28.3 pg (28.0-33.3); Mean Corpuscular Volume 87.5 fL (83.0-100.0); Mean Platelet Volume 11.3 fL (9.4-12.4); Platelet Count 138 K/mcL (140-400); Red Blood Count 3.61 M/mcL (4.19-5.50); Red Cell Distribution Width 14.6 % (11.5-14.5)
[2017-07-08 04:10] LABS: Calcium 8.9 mg/dL (8.6-10.8); Potassium 4.2 mEq/L (3.5-4.5)
[2017-07-08] MEDS: *HR* OxyCODONE ER (12 HR) 10 MG TABLET PO SCH ×2 (05:41→17:12)
[2017-07-08] MEDS: Insulin LISPRO 300 UNITS/3 ML VIAL SQ SCH ×4 (08:02→20:18)
[2017-07-08] MEDS: APIXABAN 5 MG TABLET PO SCH ×2 (08:06→20:17)
[2017-07-08] MEDS: Spironolactone 25 MG TABLET PO SCH (08:06)
[2017-07-08] MEDS: Aspirin Enteric Coated 81 MG Tablet PO SCH (08:06)
[2017-07-08] MEDS: Isosorbide MONOnitrate (24 HR) 60 MG TAB.ER.24H PO SCH (08:06)
[2017-07-08] MEDS: *HR* Amiodarone 200 MG TABLET PO SCH (08:06)
[2017-07-08] MEDS: Lactulose Oral Soln 20 GM/30 ML UDC PO SCH ×2 (08:06→20:17)
[2017-07-08] MEDS: Furosemide 20 MG/2 ML VIAL IVP SCH (08:07)
[2017-07-08] MEDS: Insulin DETEMIR 100 UNIT/ML X5UNITS SQ SCH (08:07)
--- NOTE | 2017-07-08 13:08 | Internal Med Progress Note ---
<ZitaWallace bautista - Last Filed: 07/08/17 15:33> Date of Encounter: 07/08/17 Time of Encounter: 13:00 - Assessment and plan (1) Acute renal failure superimposed on stage 3 chronic kidney disease Current Visit: Yes Status: Chronic Assessment and plan: - Reported history of stage III chronic kidney disease, per discussion with nephrology who he follows with, creatinine was 2.51 in April of this year - BUN/creatinine on admission was 41/2.59, this morning was 34/2.09 continues to improve. Reported baseline - Possible etiologies include diabetic nephropathy versus hypertension versus reported renal artery stenosis - Records from [facility] did not include recent hospitalization for possible renal artery stenting. We will plan on outpatient follow-up - We will consider nephrology consults if condition does not improve. - Retroperitoneal ultrasound yesterday was unremarkable, post void volume bladder scan was 160 mL, unlikely obstructive etiology - Continue gentle diuresis with Lasix 20 mg IV daily and spironolactone 25 Qualifiers: Acute renal failure type: unspecified Qualified Code(s): N17.9 - Acute kidney failure, unspecified; N18.3 - Chronic kidney disease, stage 3 (moderate) (2) Systolic and diastolic CHF, acute on chronic Current Visit: Yes Status: Acute Assessment and plan: - Self-reported history of systolic and diastolic CHF, record showing gated ejection fraction of 35% on nuclear stress test - Chest x-ray in the emergency department showed stable cardiomegaly without active process, generalized lower extremity and abdominal edema, resolved upper extremity edema - BNP of 843, troponin negative - Currently tolerating room air without complaints. No further lower extremity edema - Continue Lasix 20 mg IV daily, spironolactone 25 mg daily - Strict I's and O's. -820 mL yesterday - Supplemental oxygen as needed - Consider a cardiology consult tomorrow for establishment of care and further evaluation of need for stenting (3) Diabetes Current Visit: Yes Status: Acute Assessment and plan: - Most recent blood sugar of 113 - Low-dose Sliding-scale insulin - A1c of 8.1% Qualifiers: Diabetes mellitus type: type 2 Diabetes mellitus complication status: with circulatory complication Diabetes mellitus complication detail: with other circulatory complications Diabetes mellitus detention insulin use: with detention use Qualified Code(s): E11.59 - Type 2 diabetes mellitus with other circulatory complications; Z79.4 - half-way (current) use of insulin (4) A-fib Current Visit: Yes Status: Acute Assessment and plan: - Rate controlled at 59 bpm - Anticoagulated on eliquis - Continue carvedilol 25 mg twice a day Qualifiers: Atrial fibrillation type: chronic Qualified Code(s): I48.2 - Chronic atrial fibrillation (5) Peripheral artery disease Current Visit: Yes Status: Acute Assessment and plan: - Stable, continue home meds (6) DVT prophylaxis Current Visit: Yes Status: Acute Assessment and plan: Anticoagulated on eliquis for atrial fibrillation - Time Spent With Patient 25 - 35 minutes - Subjective Interval history: Patient was seen and examined at bedside this morning. He denies any current complaints and states that his shortness of breath has resolved. He denies any symptoms of fevers, chills, chest pain. He states it is becoming increasing frustrated about his long-term cardiac and renal care. He would like to follow- up with an [facility] mds coordinator and hedis review nurse so he can coordinate his care. - Constitutional Vitals: Temp Pulse Resp BP Pulse Ox 98.2 F 60 16 115/58 96 07/08/17 10:33 07/08/17 10:33 07/08/17 10:33 07/08/17 10:33 07/08/17 10:33 General appearance: Present: A&O X 3 Exam: Gen.: Vitals noted. No acute distress. AAOx3. Speaking in full sentences with oxygen mask 4 L HEENT: PERRL/EOMI, oropharynx clear, Normocephalic, atraumatic Neck: Supple. No adenopathy. Cardiac: RRR, no murmur, +S1/S2 Pulmonary: CTA bilaterally, no wheezes, rales or rhonchi, equal chest expansion Abdomen: soft, nontender, BS noted, no guarding Back: Nontender throughout. MSK: ROM intact, no joint swelling noted Extremities: no BLE edema, nontender calf, no cyanosis or clubbing Neuro: A&Ox3, moves all extremities, no focal deficits Psych: Appropriate mood and behavior Internal Medicine: Result - Labs CBC & Chem 7: 07/08/17 03:31 07/08/17 03:31 Labs: Short CBC 07/08/17 Range/Units 03:31 WBC 7.5 (4.3-11.1) K/mcL Hgb 10.2 L (12.9-16.9) g/dL Hct 31.6 L (37.5-50.1) % Plt Count 138 L (140-400) K/mcL [facility] 07/08/17 03:31 Sodium 140 Potassium 4.2 Chloride 101 Carbon Dioxide 31 H BUN 34 H Creatinine 2.09 H Glucose 113 H Calcium 8.9 - ABG Interpretation ABG results: PT/INR, D-dimer D-Dimer 511 ng/mLFEU (0-500) H 07/04/17 03:09 Consult Discharge Plan - Plan [facility]errals: [facility] [Primary Care Provider] - 07/14/17 10:00 am (Please fax [employer] paper work to [phone]-the [facility]) <Alli Hobbs P - Last Filed: 07/08/17 17:50> Date of Encounter: 07/08/17 - Constitutional Vitals: Temp Pulse Resp BP Pulse Ox 97.4 F L 62 17 127/67 96 07/08/17 16:14 07/08/17 16:14 07/08/17 16:14 07/08/17 16:14 07/08/17 16:14 Internal Medicine: Result - Labs CBC & Chem 7: 07/08/17 03:31 07/08/17 03:31 Labs: Short CBC 07/08/17 Range/Units 03:31 WBC 7.5 (4.3-11.1) K/mcL Hgb 10.2 L (12.9-16.9) g/dL Hct 31.6 L (37.5-50.1) % Plt Count 138 L (140-400) K/mcL [facility] 07/08/17 03:31 Sodium 140 Potassium 4.2 Chloride 101 Carbon Dioxide 31 H BUN 34 H Creatinine 2.09 H Glucose 113 H Calcium 8.9 - ABG Interpretation ABG results: PT/INR, D-dimer D-Dimer 511 ng/mLFEU (0-500) H 07/04/17 03:09 - Attending Attestation I examined this patient and my medical decision-making was reviewed with the Resident Physician. I agree with the documented findings, disposition and treatment plan as described except to the extent set forth below. cardiology for possible cath : vasulopath with cardio-renal syndrome after 700cc of fluid Nephrology for ?CLAIR
[2017-07-09 03:29] LABS: Calcium 8.8 mg/dL (8.6-10.8); Potassium 4.4 mEq/L (3.5-4.5)
[2017-07-09] MEDS: *HR* OxyCODONE ER (12 HR) 10 MG TABLET PO SCH ×2 (05:30→16:59)
[2017-07-09] MEDS: Insulin LISPRO 300 UNITS/3 ML VIAL SQ SCH ×4 (07:42→21:36)
[2017-07-09] MEDS: Furosemide 20 MG/2 ML VIAL IVP SCH (07:50)
[2017-07-09] MEDS: *HR* Amiodarone 200 MG TABLET PO SCH (07:50)
[2017-07-09] MEDS: Aspirin Enteric Coated 81 MG Tablet PO SCH (07:51)
[2017-07-09] MEDS: APIXABAN 5 MG TABLET PO SCH ×2 (07:51→20:26)
[2017-07-09] MEDS: Spironolactone 25 MG TABLET PO SCH (07:51)
[2017-07-09] MEDS: Lactulose Oral Soln 20 GM/30 ML UDC PO SCH ×2 (07:51→20:26)
[2017-07-09] MEDS: Isosorbide MONOnitrate (24 HR) 60 MG TAB.ER.24H PO SCH (07:51)
--- NOTE | 2017-07-09 09:09 | Internal Med Progress Note ---
<Wallace Reese - Last Filed: 07/09/17 10:58> Date of Encounter: 07/09/17 Time of Encounter: 09:09 - Assessment and plan (1) Acute renal failure superimposed on stage 3 chronic kidney disease Current Visit: Yes Status: Chronic Assessment and plan: - Reported history of stage III chronic kidney disease, per discussion with nephrology who he follows with, creatinine was 2.51 in April of this year - BUN/creatinine on admission was 41/2.59, this morning was 31/1.88 continues to improve. Reported baseline - Possible etiologies include diabetic nephropathy versus hypertension versus reported renal artery stenosis - Records from [facility] showed b/l decreased KENRICK in renal arteries possibly requiring stenting. Nephro consulted, appreciate recs. Will not stent at this time - Obstructive etiology ruled out with post void bladder scan and ultrasound. - Continue gentle diuresis with Lasix 20 mg IV daily and spironolactone 25 Qualifiers: Acute renal failure type: unspecified Qualified Code(s): N17.9 - Acute kidney failure, unspecified; N18.3 - Chronic kidney disease, stage 3 (moderate) (2) Systolic and diastolic CHF, acute on chronic Current Visit: Yes Status: Resolved Assessment and plan: - Self-reported history of systolic and diastolic CHF, record showing ejection fraction of 55% from records review in april. - Chest x-ray in the emergency department showed stable cardiomegaly without active process, generalized lower extremity and abdominal edema, resolved upper extremity edema - Recent cardiac workup from january to april of this year. repeat echo ordered. - BNP of 843, troponin negative - Currently tolerating room air without complaints. No further lower extremity edema - Continue Lasix 20 mg IV daily, spironolactone 25 mg daily - Strict I's and O's. -820 mL yesterday - Supplemental oxygen as needed - Consulted cardiology to further evaluate for worsening CHF 2/2 possible ischemia. (3) Diabetes Current Visit: Yes Status: Acute Assessment and plan: - Most recent blood sugar of 209 - Low-dose Sliding-scale insulin - A1c of 8.1% Qualifiers: Diabetes mellitus type: type 2 Diabetes mellitus complication status: with circulatory complication Diabetes mellitus complication detail: with other circulatory complications Diabetes mellitus long-term insulin use: with long-term use Qualified Code(s): E11.59 - Type 2 diabetes mellitus with other circulatory complications; Z79.4 - care home (current) use of insulin (4) A-fib Current Visit: Yes Status: Acute Assessment and plan: - Rate controlled at 60-70 bpm - Anticoagulated on eliquis - Continue carvedilol 25 mg twice a day Qualifiers: Atrial fibrillation type: chronic Qualified Code(s): I48.2 - Chronic atrial fibrillation (5) Peripheral artery disease Current Visit: Yes Status: Acute Assessment and plan: - Stable, continue home meds - Evaluation by cardiology consulted. (6) DVT prophylaxis Current Visit: Yes Status: Acute Assessment and plan: Anticoagulated on eliquis for atrial fibrillation - Time Spent With Patient 25 - 35 minutes - Subjective Interval history: Patient was seen and examined at bedside this morning. He denies any current complaints and states that his shortness of breath has resolved. He denies any symptoms of fevers, chills, chest pain. he is in agreement to speak to police judge and sr. payroll manager regarding his a possible further workup of his medical problems. - Constitutional Vitals: Temp Pulse Resp BP Pulse Ox 98.1 F 62 17 120/71 94 07/09/17 06:57 07/09/17 06:57 07/09/17 06:57 07/09/17 06:57 07/09/17 06:57 General appearance: Present: A&O X 3 Exam: Gen.: Vitals noted. No acute distress. AAOx3 HEENT: PERRL/EOMI, oropharynx clear, Normocephalic, atraumatic Neck: Supple. No adenopathy. Cardiac:Irregularly irregular, no murmur, +S1/S2 Pulmonary: CTA bilaterally, no wheezes, rales or rhonchi, equal chest expansion Abdomen: soft, nontender, BS noted, no guarding Back: Nontender throughout. MSK: ROM intact, no joint swelling noted Extremities: no BLE edema, nontender calf, no cyanosis or clubbing Neuro: A&Ox3, moves all extremities, no focal deficits Psych: Appropriate mood and behavior Internal Medicine: Result - Labs CBC & Chem 7: 07/08/17 03:31 07/09/17 03:03 Labs: BMP 07/09/17 03:03 Sodium 138 Potassium 4.4 Chloride 103 Carbon Dioxide 30 H BUN 31 H Creatinine 1.88 H Glucose 209 H Calcium 8.8 - ABG Interpretation ABG results: PT/INR, D-dimer D-Dimer 511 ng/mLFEU (0-500) H 07/04/17 03:09 Consult Discharge Plan - Plan [facility]errals: [facility] [Primary Care Provider] - 07/14/17 10:00 am (Please fax [employer] paper work to [phone]-the [facility]) <Alli Hobbs P - Last Filed: 07/09/17 17:47> Date of Encounter: 07/09/17 - Constitutional Vitals: Temp Pulse Resp BP Pulse Ox 98.3 F 59 17 120/64 96 07/09/17 16:13 07/09/17 16:13 07/09/17 16:13 07/09/17 16:13 07/09/17 16:13 Internal Medicine: Result - Labs CBC & Chem 7: 07/08/17 03:31 07/09/17 03:03 Labs: BMP 07/09/17 03:03 Sodium 138 Potassium 4.4 Chloride 103 Carbon Dioxide 30 H BUN 31 H Creatinine 1.88 H Glucose 209 H Calcium 8.8 - ABG Interpretation ABG results: PT/INR, D-dimer D-Dimer 511 ng/mLFEU (0-500) H 07/04/17 03:09 - Attending Attestation I examined this patient and my medical decision-making was reviewed with the Resident Physician. I agree with the documented findings, disposition and treatment plan as described except to the extent set forth below. We are getting records from [facility], [place], [place]. Patient prefers all of his care to switch to this hospital. Once we get all the records we will call cardiology and will discuss the further plan.
--- NOTE | 2017-07-09 09:12 | Nephrology Consult Note ---
Date of Encounter: 07/09/17 Time of Encounter: 09:10 Assessment and Plan (1) Acute renal failure superimposed on stage 3 chronic kidney disease Current Visit: Yes Status: Chronic Patient was admitted to the hospital with a clinical picture of acute kidney injury superimposed on late stage III chronic kidney disease. His renal function is improved back to baseline. Current creatinine is 1.88 with a GFR 35. Renal ultrasound was unremarkable. It does not show any renal atrophy. This point time based on the available information I do not feel the patient needs to undergo placement of a renal artery stent. His blood pressure is well controlled and currently his renal function is stable. We will review the records from the [facility] when they become available. I discussed this with the patient. He seems to understand and to be in agreement. Qualifiers: Acute renal failure type: unspecified Qualified Code(s): N17.9 - Acute kidney failure, unspecified; N18.3 - Chronic kidney disease, stage 3 (moderate) (2) CAD (coronary artery disease), [place] coronary artery Current Visit: Yes Status: Acute Qualifiers: [place] vs. 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 Patient reports that he was recently admitted to the hospital in [place]. At that point time he was scheduled to undergo stent placement in one of his lower extremities as well as one of his renal arteries. He reports that the procedure was canceled because his renal function was worse. He reports he was given IV fluids for about 3 days and then discharged home. He then became short of breath. He went to the [place] and subsequently was admitted [facility]. The time of his admission here his creatinine was 3.09. Baseline creatinine is around 2.0. During his stay here his creatinine is improved back to 1.88 with a GFR 35. His shortness of breath has improved. Renal ultrasound shows normal- sized kidneys bilaterally. There is no hydronephrosis. Echogenicity is normal. Currently the patient feels well. He denies any shortness of breath or chest pain. He does have a history of coronary artery disease carotid disease and what sounds like peripheral vascular disease of the lower extremities and possible renal vascular disease. He has had carotid surgeries as well as coronary bypass surgery in the past. Past Med Surg Social Fam HX - Past Medical History Medical history: CHF (Systolic and diastolic, last echocardiogram at this time see from March 2017 shows an ejection fraction of 50-54%, before that he was 45%) , COPD (Not oxygen dependent), coronary artery disease (Status post CABG), CVA, diabetes (Insulin-dependent), hyperlipidemia, hypertension, peripheral artery disease, renal disease (Chronic kidney disease stage III), other (Chronic atrial fibrillation on anticoagulation with Eliquis, peripheral artery disease, gout) Psychiatric history: no psych history - Past Surgical History Surgical History: angioplasty/stent, cholecystectomy, coronary bypass (CABG), LE stent(s), pacemaker/AICD, other (Endarterectomies) - Social History Smoking Status: Former smoker Alcohol use: none Drug use: none Medications and Allergies Allopurinol [Zyloprim] 300 mg PO QPM 07/04/17 [History] Amiodarone [Cordarone] 200 mg PO DAILY 07/04/17 [History] Apixaban [Eliquis] 5 mg PO BID 07/04/17 [History] Aspirin [Lo-Dose Aspirin EC] 81 mg PO DAILY 07/04/17 [History] Atorvastatin Calcium [Lipitor] 80 mg PO HS 07/04/17 [History] Carvedilol [Coreg] 25 mg PO BID 07/04/17 [History] Cholecalciferol (D-3) [Vitamin D] 1,000 unit PO DAILY 07/04/17 [History] Clopidogrel [Plavix] 75 mg PO DAILY 07/04/17 [History] Furosemide [Lasix] 40 mg PO DAILY 07/04/17 [History] Insulin Glargine [Lantus] 25 unit SQ DAILY 07/04/17 [History] Isosorbide MONOnitrate (24 HR) [Imdur] 60 mg PO DAILY 07/04/17 [History] Linagliptin [Tradjenta] 5 mg PO QPM 07/04/17 [History] NIFEdipine [Nifedipine ER] 90 mg PO DAILY 07/04/17 [History] Nitroglycerin [Nitrostat] 0.4 mg SL Q5M PRN 07/04/17 [History] Omeprazole [PriLOSEC] 20 mg PO DAILY 07/04/17 [History] Oxycodone HCl 10 mg PO BID PRN 07/04/17 [History] 3 Allergy/AdvReac Type Severity Reaction Status Date / Time morphine AdvReac Unknown See Verified 07/04/17 02:45 Comments Review of Systems Constitutional: as per HPI Nose, mouth and throat: no dizziness, no headache(s) Cardiovascular: dyspnea on exertion, no chest pain, no palpitations Gastrointestinal: no abdominal pain, no change in bowel habits Musculoskeletal: no muscle weakness, no numbness Integumentary: no hirsutism, no striae Neurological: as per HPI Psychiatric: no depression, no difficulty concentrating Endocrine: as per HPI Hematologic/Lymphatic: no easy bruising, no lymphadenopathy Exam - Vital Signs Vital signs: Initial Vital Signs Temp Pulse Resp BP Pulse Ox 97.4 F L 62 18 137/63 100 07/04/17 02:39 07/04/17 02:39 07/04/17 02:39 07/04/17 02:39 07/04/17 02:39 Vital Signs - Last 8 Hours Temp Pulse Resp BP Pulse Ox 07/09/17 06:57 98.1 F 62 17 120/71 94 07/09/17 05:31 97.6 F 59 17 135/74 90 Intake and Output 07/08/17 07/09/17 07/09/17 23:59 07:59 15:59 Intake Total 180 / 180 Output Total 500 / 500 Balance -320 / -320 Intake: Oral 180 / 180 Output: Urine 500 / 500 Other: Meal Dinner Percent of Meal Consumed 25% Weight 78.7 kg Blood Glucose* 190 129 Patient Weight 07/09/17 23:59 Weight 78.7 kg - General Appearance Exam: Patient is alert and oriented. He is in no acute distress. Neck supple. Lungs clear to auscultation. Heart regular rate and rhythm. Abdomen is benign. There is no lower extremity swelling. Results - Lab Results 07/08/17 03:31 07/09/17 03:03 Most recent lab results Calcium 8.8 mg/dL (8.6-10.8) 07/09/17 03:03 Consult Discharge Plan - Plan Referrals: [facility] [Primary Care Provider] - 07/14/17 10:00 am (Please fax [employer] paper work to [phone]-the [facility])
[2017-07-09] MEDS: Insulin DETEMIR 100 UNIT/ML X5UNITS SQ SCH (09:23)
[2017-07-10 04:53] LABS: Hematocrit 32.1 % (37.5-50.1); Hemoglobin 10.5 g/dL (12.9-16.9); Immature Platelets 3.4 % (1.1-6.1); Mean Corpuscular HGB Conc 32.7 g/dL (31.6-35.5); Mean Corpuscular Hemoglobin 28.7 pg (28.0-33.3); Mean Corpuscular Volume 87.7 fL (83.0-100.0); Mean Platelet Volume 10.9 fL (9.4-12.4); Red Blood Count 3.66 M/mcL (4.19-5.50); Red Cell Distribution Width 14.6 % (11.5-14.5)
[2017-07-10] MEDS: *HR* OxyCODONE ER (12 HR) 10 MG TABLET PO SCH ×2 (06:04→17:03)
[2017-07-10 06:16] LABS: Calcium 9.2 mg/dL (8.6-10.8); Potassium 4.5 mEq/L (3.5-4.5)
--- NOTE | 2017-07-10 08:45 | Nephrology Progress Note ---
Date of Encounter: 07/10/17 Time of Encounter: 08:15 - Assessment and Plan (1) Acute renal failure superimposed on stage 3 chronic kidney disease Current Visit: Yes Status: Chronic Creatinine at patients baseline, 1.79, GFR 37. Urine output 1500cc past 24 hours. BP 142/72. Renal US unremarkable, no renal atrophy. Reviewed with Dr. Spencer, does not believe needs renal artery stenting at this time. Qualifiers: Acute renal failure type: unspecified Qualified Code(s): N17.9 - Acute kidney failure, unspecified; N18.3 - Chronic kidney disease, stage 3 (moderate) Subjective Interval history: Sitting on edge of bed, eating breakfast. He denies any shortness of breath or chest pain. No new complaints. Objective - Vital Signs Vital signs: Vital Signs Temp Pulse Resp BP Pulse Ox 07/10/17 07:11 98.3 F 66 16 157/76 99 07/10/17 04:53 98.7 F 60 16 142/72 99 07/09/17 23:24 98.1 F 63 16 143/66 98 07/09/17 21:26 98.3 F 63 16 134/56 98 07/09/17 16:13 98.3 F 59 17 120/64 96 07/09/17 10:54 97.8 F 60 17 113/63 90 Intake and Output 07/09/17 07/10/17 07/10/17 23:59 07:59 15:59 Intake Total 120 / 120 Output Total 600 / 600 350 / 350 Balance -480 / -480 -350 / -350 Intake: Oral 120 / 120 Output: Urine 600 / 600 350 / 350 Other: Meal Dinner Percent of Meal Consumed 10% Weight 77.7 kg Blood Glucose* 323 118 Patient Weight 07/10/17 23:59 Weight 77.7 kg - General Appearance General appearance: Present: well-developed, well-nourished, appears started age EENT: Present: mucous membranes moist Neck: Present: no JVD Respiratory: Present: clear Cardiology: Present: no edema, regular rate, regular rhythm Gastrointestinal: Present: normoactive bowel sounds, no tenderness Integumentary: Present: warm and dry Neurologic: Present: alert and oriented x3 Psychiatric: Present: mood/affect appropriate, cooperative - Lab 07/10/17 04:21 07/10/17 04:21 Most recent lab results Calcium 9.2 mg/dL (8.6-10.8) 07/10/17 04:21 Consult Discharge Plan - Plan Referrals: AUDRA,PCP [Primary Care Provider] - 07/14/17 10:00 am ([facility] [phone]-the [facility])
--- NOTE | 2017-07-10 08:54 | Cardiology Consult Note ---
Date of Encounter: 07/10/17 Time of Encounter: 11:00 Assessment and Plan (1) Diastolic CHF Current Visit: Yes Status: Acute -Known history of diastolic CHF, acute on chronic CHF complicated by KELLI. Echo 07/09/17 shows LV wall motion abnormalities in both basal inferior and basal inferior septal villafuerte (hypokinetic). LV function is normal overall. LVEF 55%. -Today's I & O balance: -1140 mL -I & O balance for admission thus far: -2416 mL -Kidney function continues to improve. Cr 3.09 at the highest continues to steadily trend downward, today Cr 1.79 -07/04/17 CXR was negative for active pulmonary disease and showed stable cardiomegaly with no overt failure; no BNP drawn -Pt euvolemic on my exam -Convert pt to oral lasix on d/c Qualifiers: Congestive heart failure chronicity: acute on chronic Qualified Code(s): I50.33 - Acute on chronic diastolic (congestive) heart failure (2) CAD (coronary artery disease), [place] coronary artery Current Visit: Yes Status: Chronic -Known severe 4 vessel disease of coronary bypass grafts -Segmental wall motion abnormalities seen on echo consistent with known coronary anatomy seen on [facility]'s left heart cath performed on 02/06/17, which shows: -LAD artery 100% occlusion -Left circumlex artery 100% occlusion -RCA 100% occlusion -saphenous vein graft to distal RCA 100% occluded -ROCKWELL graft to LAD artery -SVG to 2nd obtuse marginal artery -SVG to 3rd OM -Stress test April 2017 at [facility] negative for ischemia. -Recommendations: -optimize nitrates before considering invasive treatment. No indication for procedure at this time. -increase Imdur to 90mg, first dose to be given tomorrow. -consider using Ranexa as an outpatient for symptoms of chest pain -close follow up Qualifiers: [place] vs. transplanted heart: [place] heart Associated angina: without angina Qualified Code(s): I25.10 - Atherosclerotic heart disease of [place] coronary artery without angina pectoris Discussion w patient/family: The assessment and plan as outlined above was discussed with the patient and/or family members who expressed understanding and agreement. All questions were answered. Thank you for involving us in the care of your patient. Please call with any questions. History of Present Illness Consult date: 07/10/17 Requesting physician: Alli Hobbs Consult reason: Acute on chronic CHF exacerbation History of present illness: Mr. Pisano is a 77 year old male who is a poor historian with an extensive PMH including CAD, chronic Afib, systolic & diastolic CHF, COPD, CVA, CKD stage III , IDDM, renal artery stenosis who presented 07/04/17 after discharge from [facility] inpatient the previous day. According to pt, he was supposed to have an artery stented in his upper leg by his "heart doctor" at [facility] as outpatient, but wasn' t done 2/2 worsened kidney function. Was given fluids at [facility] to help flush his kidneys that resulting in edema, "bloating," and difficulty of breathing; pt states he was then discharged from [facility], but still had difficulty breathing, went to the [facility] to find it was closed, then called for ambulance to transport him to [place] ED. Pt was dyspneic and hypoxic in the ED, required oxygen and admitted for KELLI. Inpatient treatment with diuresis and supplemental O2 lead to improvement of kidney function as well as ease of breathing. Cardiology consulted by hospitalist team for further evaluation of worsening CHF 2/2 possible ischemia. Past Med Surg Social Fam HX - Past Medical History Medical history: CHF (Systolic and diastolic, last echocardiogram at this time see from March 2017 shows an ejection fraction of 50-54%, before that he was 45%) , COPD (Not oxygen dependent), coronary artery disease (Status post CABG), CVA, diabetes (Insulin-dependent), hyperlipidemia, hypertension, peripheral artery disease, renal disease (Chronic kidney disease stage III), other (Chronic atrial fibrillation on anticoagulation with Eliquis, peripheral artery disease, gout) Psychiatric history: no psych history - Past Surgical History Surgical History: angioplasty/stent, cholecystectomy, coronary bypass (CABG), LE stent(s), pacemaker/AICD, other (Endarterectomies) - Social History Smoking Status: Former smoker Alcohol use: none Drug use: none Medications and Allergies Allopurinol [Zyloprim] 300 mg PO QPM 07/04/17 [History] Amiodarone [Cordarone] 200 mg PO DAILY 07/04/17 [History] Apixaban [Eliquis] 5 mg PO BID 07/04/17 [History] Aspirin [Lo-Dose Aspirin EC] 81 mg PO DAILY 07/04/17 [History] Atorvastatin Calcium [Lipitor] 80 mg PO HS 07/04/17 [History] Carvedilol [Coreg] 25 mg PO BID 07/04/17 [History] Cholecalciferol (D-3) [Vitamin D] 1,000 unit PO DAILY 07/04/17 [History] Clopidogrel [Plavix] 75 mg PO DAILY 07/04/17 [History] Furosemide [Lasix] 40 mg PO DAILY 07/04/17 [History] Insulin Glargine [Lantus] 25 unit SQ DAILY 07/04/17 [History] Isosorbide MONOnitrate (24 HR) [Imdur] 60 mg PO DAILY 07/04/17 [History] Linagliptin [Tradjenta] 5 mg PO QPM 07/04/17 [History] NIFEdipine [Nifedipine ER] 90 mg PO DAILY 07/04/17 [History] Nitroglycerin [Nitrostat] 0.4 mg SL Q5M PRN 07/04/17 [History] Omeprazole [PriLOSEC] 20 mg PO DAILY 07/04/17 [History] Oxycodone HCl 10 mg PO BID PRN 07/04/17 [History] 3 Allergy/AdvReac Type Severity Reaction Status Date / Time morphine AdvReac Unknown See Verified 07/04/17 02:45 Comments All Systems Review: A 10-system review of systems was performed and is negative for pertinent findings except as documented above in the HPI. - Constitutional Constitutional: no chills, no fever(s) - Cardiovascular Cardiovascular: dyspnea at rest, dyspnea on exertion, no chest pain at rest, no leg edema, no palpitations - Respiratory Respiratory: dyspnea (improved since admission), no wheezing Physical Examination Vital Signs, Last 4 Hours Temp Pulse Resp BP Pulse Ox 07/10/17 07:11 98.3 F 66 16 157/76 99 07/10/17 04:53 98.7 F 60 16 142/72 99 General: Conversant, No Apparent Distress HEENT: Mucus Membranes Moist Neck: Other (no carotid bruits) Cardiac: Reg Rate and Rhythm, Normal S1 and S2, No Murmur Lungs: Normal Breath Sounds, No Wheeze, Rales, Rhonchi, Other (normal respiratory effort) Neuro: Alert and responsive Extremities: No Edema Results 07/10/17 04:21 07/10/17 04:21 Lab Results 07/10/17 07/10/17 04:21 04:21 WBC 7.8 Hgb 10.5 L Hct 32.1 L Plt Count 166 Sodium 139 Potassium 4.5 Chloride 104 Carbon Dioxide 27 BUN 29 H Creatinine 1.79 H Glucose 93 Calcium 9.2 - Imaging and Cardiology Chest Xray: report reviewed Echo: pending - EKG Interpretation EKG results cardiology: personally reviewed Consult Discharge Plan - Plan [facility]errals: [facility] [Primary Care Provider] - 07/14/17 10:00 am (Please fax [employer] paper work to [phone]-the [facility])
--- NOTE | 2017-07-10 09:45 | Internal Med Progress Note ---
<Wallace Reese - Last Filed: 07/10/17 11:28> Date of Encounter: 07/10/17 Time of Encounter: 10:14 - Assessment and plan (1) Systolic and diastolic CHF, acute on chronic Current Visit: Yes Status: Resolved Assessment and plan: - Self-reported history of systolic and diastolic CHF, record showing ejection fraction of 55% from records review in april. - Chest x-ray in the emergency department showed stable cardiomegaly without active process, generalized lower extremity and abdominal edema, resolved upper extremity edema - Recent cardiac workup from january to april of this year. repeat echo showed stabe EF of 55%. - BNP of 843, troponin negative - Currently tolerating 4L via oxymask due to epistaxis with NC. States he is able to tolerate without o2 at rest. No further lower extremity edema - Continue Lasix 20 mg IV daily, spironolactone 25 mg daily - I's and O's. -230 mL yesterday - Supplemental oxygen as needed - Consulted cardiology to further evaluate for worsening CHF 2/2 possible ischemia. Awaiting films from [facility] for traveling freight agent (2) Acute renal failure superimposed on stage 3 chronic kidney disease Current Visit: Yes Status: Chronic Assessment and plan: - Reported history of stage III chronic kidney disease, per discussion with nephrology who he follows with, creatinine was 2.51 in April of this year - BUN/creatinine on admission was 41/2.59, this morning was 29/1.79 continues to improve. Reported baseline - Possible etiologies include diabetic nephropathy versus hypertension versus reported renal artery stenosis - Records from [facility] showed b/l decreased KENRICK in renal arteries possibly requiring stenting. Nephro consulted, appreciate recs. Will not stent at this time - Obstructive etiology ruled out with post void bladder scan and ultrasound. 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 (6) DVT prophylaxis Current Visit: Yes Status: Acute Assessment and plan: Anticoagulated on eliquis for atrial fibrillation - Time Spent With Patient 25 - 35 minutes - Subjective Interval history: Patient was seen and examined at bedside this morning. His SOB has improved and he states he only is experiencing SOB on exertion but is able to rest without hs mask on. He denies any symptoms of fevers, chills, chest pain. he is in agreement to speak to traveling freight agent today regarding the possible need for further management. - Constitutional Vitals: Temp Pulse Resp BP Pulse Ox 98.3 F 66 16 157/76 99 07/10/17 07:11 07/10/17 07:11 07/10/17 07:11 07/10/17 07:11 07/10/17 07:11 General appearance: Present: A&O X 3 Exam: Gen.: Vitals noted. No acute distress. AAOx3, speaking in full sentences on oxymask. HEENT: PERRL/EOMI, oropharynx clear, Normocephalic, atraumatic Neck: Supple. No adenopathy. Cardiac: irregularly irregular rhythm, no murmur, +S1/S2 Pulmonary: CTA bilaterally, no wheezes, rales or rhonchi, equal chest expansion Abdomen: soft, nontender, BS noted, no guarding Back: Nontender throughout. MSK: ROM intact, no joint swelling noted Extremities: no BLE edema, nontender calf, no cyanosis or clubbing Neuro: A&Ox3, moves all extremities, no focal deficits Psych: Appropriate mood and behavior Internal Medicine: Result - Labs CBC & Chem 7: 07/10/17 04:21 07/10/17 04:21 Labs: Short CBC 07/10/17 Range/Units 04:21 WBC 7.8 (4.3-11.1) K/mcL Hgb 10.5 L (12.9-16.9) g/dL Hct 32.1 L (37.5-50.1) % Plt Count 166 (140-400) K/mcL BMP 07/10/17 04:21 Sodium 139 Potassium 4.5 Chloride 104 Carbon Dioxide 27 BUN 29 H Creatinine 1.79 H Glucose 93 Calcium 9.2 - ABG Interpretation ABG results: PT/INR, D-dimer D-Dimer 511 ng/mLFEU (0-500) H 07/04/17 03:09 Consult Discharge Plan - Plan Referrals: [facility] [Primary Care Provider] - 07/14/17 10:00 am (Please fax [employer] paper work to [phone]-the [facility]) <Alli Hobbs P - Last Filed: 07/11/17 17:39> Date of Encounter: 07/11/17 - Constitutional Vitals: Temp Pulse Resp BP Pulse Ox 97.6 F 60 18 158/75 97 07/11/17 15:35 07/11/17 15:35 07/11/17 15:35 07/11/17 15:35 07/11/17 15:35 Internal Medicine: Result - Labs CBC & Chem 7: 07/11/17 04:08 07/11/17 04:08 Labs: Short CBC 07/11/17 Range/Units 04:08 WBC 7.7 (4.3-11.1) K/mcL Hgb 10.7 L (12.9-16.9) g/dL Hct 33.3 L (37.5-50.1) % Plt Count 172 (140-400) K/mcL BMP 07/11/17 04:08 Sodium 140 Potassium 4.2 Chloride 103 Carbon Dioxide 29 BUN 34 H Creatinine 1.83 H Glucose 122 H Calcium 9.1 - ABG Interpretation ABG results: PT/INR, D-dimer PT 22.9 Seconds (9.4-12.1) H 07/11/17 04:08 D-Dimer 511 ng/mLFEU (0-500) H 07/04/17 03:09 - Attending Attestation I examined this patient and my medical decision-making was reviewed with the Resident Physician. I agree with the documented findings, disposition and treatment plan as described except to the extent set forth below. please see event note from same day
[2017-07-10] MEDS: Insulin LISPRO 300 UNITS/3 ML VIAL SQ SCH ×4 (09:47→21:23)
[2017-07-10] MEDS: Lactulose Oral Soln 20 GM/30 ML UDC PO SCH ×2 (09:49→20:00)
[2017-07-10] MEDS: Aspirin Enteric Coated 81 MG Tablet PO SCH (09:49)
[2017-07-10] MEDS: *HR* Amiodarone 200 MG TABLET PO SCH (09:49)
[2017-07-10] MEDS: Furosemide 20 MG/2 ML VIAL IVP SCH (09:49)
[2017-07-10] MEDS: Spironolactone 25 MG TABLET PO SCH (09:49)
[2017-07-10] MEDS: Isosorbide MONOnitrate (24 HR) 60 MG TAB.ER.24H PO SCH (09:49)
[2017-07-10] MEDS: APIXABAN 5 MG TABLET PO SCH ×2 (09:50→20:00)
[2017-07-10] MEDS: Insulin DETEMIR 100 UNIT/ML X5UNITS SQ SCH (09:59)
--- NOTE | 2017-07-10 17:38 | Event Note ---
Date of Encounter: 07/10/17 Time of Encounter: 17:36 I examined this patient and my medical decision-making was reviewed with the Resident Physician. I agree with the documented findings, disposition and treatment plan as described except to the extent set forth below. I have examined this patient with the resident. I was unable to sign the resident's note as a cosigner due to updates in progress. This updates in progress is going on for more than 45 minutes. This is the reason I need to write an event note. Please follow the note from the resident. In brief: I am waiting for cardiac catheterization films from [facility].
[2017-07-11 05:19] LABS: Hematocrit 33.3 % (37.5-50.1); Hemoglobin 10.7 g/dL (12.9-16.9); INR 2.1; Mean Corpuscular HGB Conc 32.1 g/dL (31.6-35.5); Mean Corpuscular Hemoglobin 28.4 pg (28.0-33.3); Mean Corpuscular Volume 88.3 fL (83.0-100.0); Mean Platelet Volume 11.5 fL (9.4-12.4); Platelet Count 172 K/mcL (140-400); Prothrombin Time 22.9 Seconds (9.4-12.1); Red Blood Count 3.77 M/mcL (4.19-5.50); Red Cell Distribution Width 14.6 % (11.5-14.5)
[2017-07-11 05:32] LABS: Calcium 9.1 mg/dL (8.6-10.8); Potassium 4.2 mEq/L (3.5-4.5)
[2017-07-11] MEDS: *HR* OxyCODONE ER (12 HR) 10 MG TABLET PO SCH ×2 (06:16→17:29)
[2017-07-11] MEDS: Insulin LISPRO 300 UNITS/3 ML VIAL SQ SCH ×4 (08:03→21:46)
[2017-07-11] MEDS: Aspirin Enteric Coated 81 MG Tablet PO SCH (09:33)
[2017-07-11] MEDS: Spironolactone 25 MG TABLET PO SCH (09:34)
[2017-07-11] MEDS: Lactulose Oral Soln 20 GM/30 ML UDC PO SCH ×2 (09:35→21:04)
[2017-07-11] MEDS: APIXABAN 5 MG TABLET PO SCH ×2 (09:35→21:03)
[2017-07-11] MEDS: *HR* Amiodarone 200 MG TABLET PO SCH (09:35)
[2017-07-11] MEDS: Isosorbide MONOnitrate (24 HR) 60 MG TAB.ER.24H PO SCH (09:35)
--- NOTE | 2017-07-11 09:35 | Nephrology Progress Note ---
Date of Encounter: 07/11/17 Time of Encounter: 09:10 - Assessment and Plan (1) Acute renal failure superimposed on stage 3 chronic kidney disease Current Visit: Yes Status: Chronic Creatinine at patients baseline. Renal US unremarkable, no renal atrophy. Reviewed with Dr. Spencer, does not believe needs renal artery stenting at this time. Awaiting cardiology input, may transfer care to [facility] where prior interventions done. Qualifiers: Acute renal failure type: unspecified Qualified Code(s): N17.9 - Acute kidney failure, unspecified; N18.3 - Chronic kidney disease, stage 3 (moderate) Subjective Interval history: Watching TV. States had episode of chest pressure last night, none today. He denies any shortness of breath or chest pain. No new complaints. Objective - Vital Signs Vital signs: Vital Signs Temp Pulse Resp BP Pulse Ox 07/11/17 06:58 97.7 F 66 16 164/78 96 07/11/17 04:16 98.0 F 63 16 106/57 97 07/10/17 23:03 98.0 F 59 18 119/64 98 07/10/17 19:16 98.0 F 63 16 136/72 97 07/10/17 16:11 97.4 F L 60 16 147/77 98 07/10/17 11:06 97.5 F L 60 15 157/62 98 Intake and Output 07/10/17 07/11/17 07/11/17 23:59 07:59 15:59 Intake Total 120 / 120 200 / 200 Output Total 450 / 450 Balance -330 / -330 200 / 200 Intake: Oral 120 / 120 200 / 200 Output: Urine 450 / 450 Other: Meal Dinner Breakfast Percent of Meal Consumed 100% 75% Weight 76.454 kg Blood Glucose* 214 171 Patient Weight 07/11/17 23:59 Weight 76.454 kg - General Appearance General appearance: Present: well-developed, well-nourished, appears started age EENT: Present: mucous membranes moist Neck: Present: no JVD Respiratory: Present: clear Cardiology: Present: no edema, regular rate, regular rhythm Gastrointestinal: Present: normoactive bowel sounds, no tenderness Integumentary: Present: warm and dry Neurologic: Present: alert and oriented x3 Psychiatric: Present: mood/affect appropriate, cooperative - Lab 07/11/17 04:08 07/11/17 04:08 Most recent lab results Calcium 9.1 mg/dL (8.6-10.8) 07/11/17 04:08 Consult Discharge Plan - Plan Referrals: [facility] [Primary Care Provider] - 07/14/17 10:00 am (Please fax [employer] paper work to [phone]-the [facility])
[2017-07-11] MEDS: Furosemide 20 MG/2 ML VIAL IVP SCH (09:36)
[2017-07-11] MEDS: Insulin DETEMIR 100 UNIT/ML X5UNITS SQ SCH (09:43)
--- NOTE | 2017-07-11 10:14 | Internal Med Progress Note ---
<Wallace Reese - Last Filed: 07/11/17 11:50> Date of Encounter: 07/11/17 Time of Encounter: 10:14 - Assessment and plan (1) Systolic and diastolic CHF, acute on chronic Current Visit: Yes Status: Resolved Assessment and plan: - Self-reported history of systolic and diastolic CHF, record showing ejection fraction of 55% from records review in april. - Chest x-ray in the emergency department showed stable cardiomegaly without active process, generalized lower extremity and abdominal edema, resolved upper extremity edema - Recent cardiac workup from january to april of this year including stress test, echo, LHC. repeat echo showed stabe EF of 55%. - BNP of 843, troponin negative - Currently tolerating 4L via oxymask due to epistaxis with NC. Home O2 set up. - Continue Lasix 20 mg IV daily, spironolactone 25 mg daily - Consulted cardiology to further evaluate for worsening CHF 2/2 possible ischemia. Awaiting films from [facility] for prototype fabricator (2) Acute renal failure superimposed on stage 3 chronic kidney disease Current Visit: Yes Status: Chronic Assessment and plan: - Reported history of stage III chronic kidney disease, per discussion with nephrology who he follows with, creatinine was 2.51 in April of this year - BUN/creatinine on admission was 41/2.59, this morning was 22/1.83, stable. - Possible etiologies include diabetic nephropathy versus hypertension versus reported renal artery stenosis - Records from [facility] showed b/l decreased KENRICK in renal arteries possibly requiring stenting. Nephro consulted, appreciate recs. 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 insulin use: with local company intermodal truck driver use Qualified Code(s): E11.59 - Type 2 diabetes mellitus with other circulatory complications; 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 (6) DVT prophylaxis Current Visit: Yes Status: Acute Assessment and plan: Anticoagulated on eliquis for atrial fibrillation - Time Spent With Patient 25 - 35 minutes - Subjective Interval history: Patient was seen and examined at bedside this morning. He states his SOB is the same, and needs to put his mask back on after a few minutes without it. He is otherwise asymptomatic. - Constitutional Vitals: Temp Pulse Resp BP Pulse Ox 97.7 F 66 16 164/78 96 07/11/17 06:58 07/11/17 06:58 07/11/17 06:58 07/11/17 06:58 07/11/17 06:58 General appearance: Present: cooperative, A&O X 3, pleasant - Head Head exam: Present: atraumatic, normal inspection, normocephalic - ENT ENT exam: Present: mucous membranes moist - Respiratory Respiratory exam: Present: CTAB. Absent: rales, wheezes - Cardiovascular Cardiovascular exam: Present: irregular rhythm, +S1, +S2. Absent: diastolic murmur, systolic murmur - GI/Abdominal GI/Abdominal exam: Present: normal bowel sounds, soft. Absent: tenderness - Extremities Exam Extremities exam: Present: normal inspection, warm - Psychiatric Psychiatric exam: Present: normal affect, normal mood Internal Medicine: Result - Labs CBC & Chem 7: 07/11/17 04:08 07/11/17 04:08 Labs: Short CBC 07/11/17 Range/Units 04:08 WBC 7.7 (4.3-11.1) K/mcL Hgb 10.7 L (12.9-16.9) g/dL Hct 33.3 L (37.5-50.1) % Plt Count 172 (140-400) K/mcL BMP 07/11/17 04:08 Sodium 140 Potassium 4.2 Chloride 103 Carbon Dioxide 29 BUN 22 Creatinine 1.83 H Glucose 122 H Calcium 9.1 - ABG Interpretation ABG results: PT/INR, D-dimer PT 22.9 Seconds (9.4-12.1) H 07/11/17 04:08 D-Dimer 511 ng/mLFEU (0-500) H 07/04/17 03:09 Consult Discharge Plan - Plan Referrals: [facility],PCP [Primary Care Provider] - 07/14/17 10:00 am (Please fax [employer] paper work to [phone]-the [facility]) <Alli Hobbs P - Last Filed: 07/11/17 17:38> Date of Encounter: 07/11/17 - Constitutional Vitals: Temp Pulse Resp BP Pulse Ox 97.6 F 60 18 158/75 97 07/11/17 15:35 07/11/17 15:35 07/11/17 15:35 07/11/17 15:35 07/11/17 15:35 Internal Medicine: Result - Labs CBC & Chem 7: 07/11/17 04:08 07/11/17 04:08 Labs: Short CBC 07/11/17 Range/Units 04:08 WBC 7.7 (4.3-11.1) K/mcL Hgb 10.7 L (12.9-16.9) g/dL Hct 33.3 L (37.5-50.1) % Plt Count 172 (140-400) K/mcL BMP 07/11/17 04:08 Sodium 140 Potassium 4.2 Chloride 103 Carbon Dioxide 29 BUN 34 H Creatinine 1.83 H Glucose 122 H Calcium 9.1 - ABG Interpretation ABG results: PT/INR, D-dimer PT 22.9 Seconds (9.4-12.1) H 07/11/17 04:08 D-Dimer 511 ng/mLFEU (0-500) H 07/04/17 03:09 - Attending Attestation I examined this patient and my medical decision-making was reviewed with the Resident Physician. I agree with the documented findings, disposition and treatment plan as described except to the extent set forth below. Awaiting for cath films from his [facility].
[2017-07-12] MEDS: *HR* OxyCODONE ER (12 HR) 10 MG TABLET PO SCH ×2 (06:36→17:05)
[2017-07-12 06:51] LABS: Hematocrit 36.2 % (37.5-50.1); Hemoglobin 11.7 g/dL (12.9-16.9); Mean Corpuscular HGB Conc 32.3 g/dL (31.6-35.5); Mean Corpuscular Hemoglobin 28.3 pg (28.0-33.3); Mean Corpuscular Volume 87.7 fL (83.0-100.0); Mean Platelet Volume 10.8 fL (9.4-12.4); Platelet Count 191 K/mcL (140-400); Red Blood Count 4.13 M/mcL (4.19-5.50); Red Cell Distribution Width 14.6 % (11.5-14.5)
[2017-07-12 07:05] LABS: Calcium 9.7 mg/dL (8.6-10.8); Potassium 4.5 mEq/L (3.5-4.5)
--- NOTE | 2017-07-12 08:43 | Nephrology Progress Note ---
Date of Encounter: 07/12/17 Time of Encounter: 08:05 - Assessment and Plan (1) Acute renal failure superimposed on stage 3 chronic kidney disease Current Visit: Yes Status: Chronic Creatinine at patients baseline. Renal US unremarkable, no renal atrophy. Reviewed with Dr. Spencer, does not believe needs renal artery stenting at this time. Awaiting cardiology input, may transfer care to [facility] where prior interventions done. Qualifiers: Acute renal failure type: unspecified Qualified Code(s): N17.9 - Acute kidney failure, unspecified; N18.3 - Chronic kidney disease, stage 3 (moderate) Subjective Interval history: Sitting on edge of bed, eating breakfast. Denies chest pain or SOB. No new complaints. Objective - Vital Signs Vital signs: Vital Signs Temp Pulse Resp BP Pulse Ox 07/12/17 07:00 97.8 F 62 17 128/73 97 07/12/17 05:24 98.4 F 64 16 144/70 98 07/11/17 23:43 98.2 F 62 16 105/62 93 07/11/17 19:13 98.1 F 60 16 107/59 97 07/11/17 15:35 97.6 F 60 18 158/75 97 07/11/17 10:56 98.1 F 61 16 126/64 90 Intake and Output 07/11/17 07/12/17 07/12/17 23:59 07:59 15:59 Intake Total 240 / 240 Balance 240 / 240 Intake: Oral 240 / 240 Other: Meal Dinner Percent of Meal Consumed 100% Weight 69.853 kg Blood Glucose* 199 162 - General Appearance General appearance: Present: well-developed, well-nourished, appears started age EENT: Present: mucous membranes moist Neck: Present: no JVD Respiratory: Present: clear Cardiology: Present: no edema, regular rate, regular rhythm Gastrointestinal: Present: normoactive bowel sounds, no tenderness Integumentary: Present: warm and dry Neurologic: Present: alert and oriented x3 Psychiatric: Present: mood/affect appropriate, cooperative - Lab 07/12/17 06:26 07/12/17 06:26 Most recent lab results Calcium 9.7 mg/dL (8.6-10.8) 07/12/17 06:26 Consult Discharge Plan - Plan Referrals: [facility] [Primary Care Provider] - 07/14/17 10:00 am (Please fax [employer] paper work to [phone]-the [facility])
[2017-07-12] MEDS: Isosorbide MONOnitrate (24 HR) 60 MG TAB.ER.24H PO SCH (09:16)
[2017-07-12] MEDS: Lactulose Oral Soln 20 GM/30 ML UDC PO SCH ×2 (09:16→21:11)
[2017-07-12] MEDS: APIXABAN 5 MG TABLET PO SCH ×2 (09:16→21:10)
[2017-07-12] MEDS: Aspirin Enteric Coated 81 MG Tablet PO SCH (09:16)
[2017-07-12] MEDS: Insulin LISPRO 300 UNITS/3 ML VIAL SQ SCH ×4 (09:16→21:10)
[2017-07-12] MEDS: *HR* Amiodarone 200 MG TABLET PO SCH (09:17)
[2017-07-12] MEDS: Spironolactone 25 MG TABLET PO SCH (09:17)
[2017-07-12] MEDS: Furosemide 20 MG/2 ML VIAL IVP SCH (09:17)
[2017-07-12] MEDS: Insulin DETEMIR 100 UNIT/ML X5UNITS SQ SCH (09:28)
--- NOTE | 2017-07-12 17:52 | Internal Med Progress Note ---
Date of Encounter: 07/12/17 Time of Encounter: 17:49 - Assessment and plan (1) Systolic and diastolic CHF, acute on chronic Current Visit: Yes Status: Resolved Assessment and plan: - Self-reported history of systolic and diastolic CHF, record showing ejection fraction of 55% from records review in april. - Chest x-ray in the emergency department showed stable cardiomegaly without active process, generalized lower extremity and abdominal edema, resolved upper extremity edema - Recent cardiac workup from january to april of this year including stress test, echo, C. repeat echo showed stabe EF of 55%. - BNP of 843, troponin negative - Currently tolerating 4L via oxymask due to epistaxis with NC. Home O2 set up. - Continue Lasix 20 mg IV daily, spironolactone 25 mg daily - Consulted cardiology to further evaluate for worsening CHF 2/2 possible ischemia. Awaiting films from [facility] for inverter and clipper 07/12/2017. No new changes as compared to the previous day. We are still waiting for films from [facility], [place], [place] (2) Acute renal failure superimposed on stage 3 chronic kidney disease Current Visit: Yes Status: Chronic Assessment and plan: - Reported history of stage III chronic kidney disease, per discussion with nephrology who he follows with, creatinine was 2.51 in April of this year - BUN/creatinine on admission was 41/2.59, this morning was 22/1.83, stable. - Possible etiologies include diabetic nephropathy versus hypertension versus reported renal artery stenosis - Records from [facility] showed b/l decreased KENRICK in renal arteries possibly requiring stenting. Nephro consulted, appreciate recs. Will not stent at this time - Continue gentle diuresis with Lasix 20 mg IV daily and spironolactone 25 07/12/2017. Creatinine is improving. We will monitor the labs very closely. Qualifiers: Acute renal failure type: unspecified Qualified Code(s): N17.9 - Acute kidney failure, unspecified; N18.3 - Chronic kidney disease, stage 3 (moderate) (3) Diabetes Current Visit: Yes Status: Acute Assessment and plan: - Low-dose Sliding-scale insulin - A1c of 8.1% Qualifiers: Diabetes mellitus type: type 2 Diabetes mellitus complication status: with circulatory complication Diabetes mellitus complication detail: with other circulatory complications Diabetes mellitus residential insulin use: with therapeutic riding instructor use Qualified Code(s): E11.59 - Type 2 diabetes mellitus with other circulatory complications; Z79.4 - assisted (current) use of insulin (4) A-fib Current Visit: Yes Status: Acute Assessment and plan: - Rate controlled at 60-70 bpm - Anticoagulated on eliquis - Continue carvedilol 25 mg twice a day Qualifiers: Atrial fibrillation type: chronic Qualified Code(s): I48.2 - Chronic atrial fibrillation (5) DVT prophylaxis Current Visit: Yes Status: Acute Assessment and plan: Anticoagulated on eliquis for atrial fibrillation (6) PAD (peripheral artery disease) Current Visit: Yes Status: Acute - Subjective Interval history: Patient seen and examined. Chart reviewed Patient is comfortably lying in bed. Patient denies chest pain, shortness of breath, abdominal pain, nausea, vomiting , dizziness or diarrhea. - Constitutional Vitals: Temp Pulse Resp BP Pulse Ox 97.5 F L 60 16 131/67 97 07/12/17 16:04 07/12/17 16:04 07/12/17 16:04 07/12/17 16:04 07/12/17 16:04 General appearance: Present: cooperative, A&O X 3, pleasant - Head Head exam: Present: atraumatic, normocephalic - Eye Eye exam: Present: PERRL, conjuntiva pink, sclera anicteric Pupils: Present: PERRL - Neck Neck exam general surgery: Present: supple, trachea midline. Absent: lymphadenopathy - Respiratory Respiratory exam: Present: CTAB. Absent: accessory muscle use, rales, rhonchi, wheezes - Cardiovascular Cardiovascular exam: Present: RRR, +S1, +S2. Absent: diastolic murmur, gallop, rubs, systolic murmur - GI/Abdominal GI/Abdominal exam: Present: normal bowel sounds, soft, no peritoneal signs. Absent: distended, tenderness - Extremities Exam Extremities exam: Present: warm, radial pulses palpable and symmetrical. Absent : calf tenderness, cyanotic, pedal edema - Neurological Exam Neurological exam: Present: CN II-XII intact, oriented X3, no focal deficits. Absent: pronater drift, facial droop, speech deficit - Skin Skin exam: Present: dry, intact Internal Medicine: Result - Labs CBC & Chem 7: 07/12/17 06:26 07/12/17 06:26 Labs: Short CBC 07/12/17 Range/Units 06:26 WBC 9.0 (4.3-11.1) K/mcL Hgb 11.7 L (12.9-16.9) g/dL Hct 36.2 L (37.5-50.1) % Plt Count 191 (140-400) K/mcL BMP 07/12/17 06:26 Sodium 137 Potassium 4.5 Chloride 103 Carbon Dioxide 27 BUN 34 H Creatinine 1.93 H Glucose 144 H Calcium 9.7 - ABG Interpretation ABG results: PT/INR, D-dimer PT 22.9 Seconds (9.4-12.1) H 07/11/17 04:08 D-Dimer 511 ng/mLFEU (0-500) H 07/04/17 03:09 Consult Discharge Plan - Plan [facility]errals[facility]Primary Care Provider[facility] - 07/14/17 10:00 am (Please fax driss paper work to [phone]-the [facility])
[2017-07-13 05:00] LABS: Basophils % 0.6 %; Eosinophils # 0.4 K/mcL (0.0-0.6); Eosinophils % 5.8 %; Hematocrit 31.7 % (37.5-50.1); Hemoglobin 10.3 g/dL (12.9-16.9); Immature Granulocytes % 1.1 % (0-4); Lymphocytes # 1.3 K/mcL (0.6-4.6); Mean Corpuscular HGB Conc 32.5 g/dL (31.6-35.5); Mean Corpuscular Hemoglobin 28.4 pg (28.0-33.3); Mean Corpuscular Volume 87.3 fL (83.0-100.0); Mean Platelet Volume 11.2 fL (9.4-12.4); Monocytes # 0.6 K/mcL (0.0-1.3); Neutrophils # 4.8 K/mcL (1.6-8.9); Platelet Count 200 K/mcL (140-400); Red Blood Count 3.63 M/mcL (4.19-5.50); Red Cell Distribution Width 14.6 % (11.5-14.5); Segmented Neutrophils % 66.5 %
[2017-07-13 05:13] LABS: Albumin/Globulin Ratio 0.9 (1.1-2.2); Bilirubin,Total 0.5 mg/dL (0.2-1.2); Calcium 9.3 mg/dL (8.6-10.8); Globulin 3.5 g/dL (2.4-3.5); Potassium 4.6 mEq/L (3.5-4.5); Total Protein 6.5 g/dL (6.0-8.3)
[2017-07-13] MEDS: *HR* OxyCODONE ER (12 HR) 10 MG TABLET PO SCH ×2 (06:31→17:32)
--- NOTE | 2017-07-13 08:00 | Internal Med Progress Note ---
Date of Encounter: 07/13/17 Time of Encounter: 07:59 - Assessment and plan (1) Systolic and diastolic CHF, acute on chronic Current Visit: Yes Status: Resolved Assessment and plan: - Self-reported history of systolic and diastolic CHF, record showing ejection fraction of 55% from records review in april. - Chest x-ray in the emergency department showed stable cardiomegaly without active process, generalized lower extremity and abdominal edema, resolved upper extremity edema - Recent cardiac workup from january to april of this year including stress test, echo, C. repeat echo showed stabe EF of 55%. - BNP of 843, troponin negative - Currently tolerating 4L via oxymask due to epistaxis with NC. Home O2 set up. - Continue Lasix 20 mg IV daily, spironolactone 25 mg daily - Consulted cardiology to further evaluate for worsening CHF 2/2 possible ischemia. Awaiting films from [facility] for floor and wall applier liquid 07/12/2017. No new changes as compared to the previous day. We are still waiting for films from [place], [place] 07/13/2017. No new changes as compared to yesterday. We are still waiting for films from the [facility], [facility] (2) Acute renal failure superimposed on stage 3 chronic kidney disease Current Visit: Yes Status: Chronic Assessment and plan: - Reported history of stage III chronic kidney disease, per discussion with nephrology who he follows with, creatinine was 2.51 in April of this year - BUN/creatinine on admission was 41/2.59, this morning was 22/1.83, stable. - Possible etiologies include diabetic nephropathy versus hypertension versus reported renal artery stenosis - Records from [facility] showed b/l decreased KENRICK in renal arteries possibly requiring stenting. Nephro consulted, appreciate recs. Will not stent at this time - Continue gentle diuresis with Lasix 20 mg IV daily and spironolactone 25 07/12/2017. Creatinine is improving. We will monitor the labs very closely. Qualifiers: Acute renal failure type: unspecified Qualified Code(s): N17.9 - Acute kidney failure, unspecified; N18.3 - Chronic kidney disease, stage 3 (moderate) (3) Diabetes Current Visit: Yes Status: Acute Assessment and plan: - Low-dose Sliding-scale insulin - A1c of 8.1% Qualifiers: Diabetes mellitus type: type 2 Diabetes mellitus complication status: with circulatory complication Diabetes mellitus complication detail: with other circulatory complications Diabetes mellitus terminal superintendent insulin use: with correction use Qualified Code(s): E11.59 - Type 2 diabetes mellitus with other circulatory complications; Z79.4 - care home (current) use of insulin (4) A-fib Current Visit: Yes Status: Acute Assessment and plan: - Rate controlled at 60-70 bpm - Anticoagulated on eliquis - Continue carvedilol 25 mg twice a day Qualifiers: Atrial fibrillation type: chronic Qualified Code(s): I48.2 - Chronic atrial fibrillation (5) DVT prophylaxis Current Visit: Yes Status: Acute Assessment and plan: Anticoagulated on eliquis for atrial fibrillation (6) PAD (peripheral artery disease) Current Visit: Yes Status: Acute - Subjective Interval history: Patient seen and examined. Chart reviewed Patient is comfortably lying in bed. Patient denies chest pain, shortness of breath, abdominal pain, nausea, vomiting , dizziness or diarrhea. 07/13/2017. Patient seen and examined. Chart reviewed. Patient is comfortably lying in bed. Patient denies chest pain, shortness of breath, abdominal pain, nausea. - Constitutional Vitals: Temp Pulse Resp BP Pulse Ox 97.5 F L 59 17 115/66 91 07/13/17 07:06 07/13/17 07:06 07/13/17 07:06 07/13/17 07:06 07/13/17 07:06 General appearance: Present: cooperative, A&O X 3, pleasant - Head Head exam: Present: atraumatic, normocephalic - Eye Eye exam: Present: PERRL, conjuntiva pink, sclera anicteric Pupils: Present: PERRL - Neck Neck exam general surgery: Present: supple, trachea midline. Absent: lymphadenopathy - Respiratory Respiratory exam: Present: CTAB. Absent: accessory muscle use, rales, rhonchi, wheezes - Cardiovascular Cardiovascular exam: Present: RRR, +S1, +S2. Absent: diastolic murmur, gallop, rubs, systolic murmur - GI/Abdominal GI/Abdominal exam: Present: normal bowel sounds, soft, no peritoneal signs. Absent: distended, tenderness - Extremities Exam Extremities exam: Present: warm, radial pulses palpable and symmetrical. Absent : calf tenderness, cyanotic, pedal edema - Neurological Exam Neurological exam: Present: CN II-XII intact, oriented X3, no focal deficits. Absent: pronater drift, facial droop, speech deficit - Skin Skin exam: Present: dry, intact Internal Medicine: Result - Labs CBC & Chem 7: 07/13/17 03:49 07/13/17 03:49 Labs: Short CBC 07/13/17 Range/Units 03:49 WBC 7.2 (4.3-11.1) K/mcL Hgb 10.3 L (12.9-16.9) g/dL Hct 31.7 L (37.5-50.1) % Plt Count 200 (140-400) K/mcL Neutrophils # 4.8 (1.6-8.9) K/mcL BMP 07/13/17 03:49 Sodium 136 Potassium 4.6 H Chloride 102 Carbon Dioxide 27 BUN 42 H Creatinine 2.13 H Glucose 199 H Calcium 9.3 Liver Function 07/13/17 Range/Units 03:49 Total Bilirubin 0.5 (0.2-1.2) mg/dL AST 20 (5-34) Units/L ALT 25 (0-55) Units/L Alkaline Phosphatase 89 (38-126) Units/L Albumin 3.0 L (3.5-5.0) g/dL - ABG Interpretation ABG results: PT/INR, D-dimer PT 22.9 Seconds (9.4-12.1) H 07/11/17 04:08 D-Dimer 511 ng/mLFEU (0-500) H 07/04/17 03:09 Consult Discharge Plan - Plan [facility]errals: [facility] [Primary Care Provider] - 07/14/17 10:00 am (Please fax dicharge paper work to [phone]-the [facility] [address])
--- NOTE | 2017-07-13 08:31 | Nephrology Progress Note ---
Date of Encounter: 07/13/17 Time of Encounter: 07:50 - Assessment and Plan (1) Acute renal failure superimposed on stage 3 chronic kidney disease Current Visit: Yes Status: Chronic Baseline creat 1.8-1.9. ctreat today 2.13. Renal US unremarkable, no renal atrophy. Reviewed with Dr. Spencer, does not believe needs renal artery stenting at this time. Awaiting cardiology input, may transfer care to [facility] where prior interventions done. Continue to monitor. Qualifiers: Acute renal failure type: unspecified Qualified Code(s): N17.9 - Acute kidney failure, unspecified; N18.3 - Chronic kidney disease, stage 3 (moderate) Subjective Interval history: Layng in bed. Denies chest pain or SOB. No new complaints. Objective - Vital Signs Vital signs: Vital Signs Temp Pulse Resp BP Pulse Ox 07/13/17 07:06 97.5 F L 59 17 115/66 91 07/13/17 02:47 98.3 F 62 18 149/72 98 07/12/17 23:54 98.8 F 60 17 125/69 96 07/12/17 20:39 98.3 F 60 18 125/65 96 07/12/17 16:04 97.5 F L 60 16 131/67 97 07/12/17 10:51 97.7 F 61 18 139/64 97 07/12/17 09:31 97 Intake and Output 07/12/17 07/13/17 07/13/17 23:59 07:59 15:59 Intake Total 240 / 240 Output Total 450 / 450 Balance -210 / -210 Intake: Oral 240 / 240 Output: Urine 450 / 450 Other: Weight 75.8 kg Blood Glucose* 170 143 Patient Weight 07/13/17 23:59 Weight 75.8 kg - General Appearance General appearance: Present: well-developed, well-nourished, appears started age EENT: Present: mucous membranes moist Neck: Present: no JVD Respiratory: Present: clear Cardiology: Present: no edema, regular rate, regular rhythm Gastrointestinal: Present: normoactive bowel sounds, no tenderness Integumentary: Present: warm and dry Neurologic: Present: alert and oriented x3 Psychiatric: Present: mood/affect appropriate, cooperative - Lab 07/13/17 03:49 07/13/17 03:49 Most recent lab results Calcium 9.3 mg/dL (8.6-10.8) 07/13/17 03:49 Consult Discharge Plan - Plan Referrals: [facility] [Primary Care Provider] - 07/14/17 10:00 am (Please fax dicharge paper work to [phone]-the [facility])
[2017-07-13] MEDS: Insulin LISPRO 300 UNITS/3 ML VIAL SQ SCH ×4 (08:58→21:43)
[2017-07-13] MEDS: *HR* Amiodarone 200 MG TABLET PO SCH (08:58)
[2017-07-13] MEDS: Aspirin Enteric Coated 81 MG Tablet PO SCH (08:58)
[2017-07-13] MEDS: APIXABAN 5 MG TABLET PO SCH ×2 (08:58→21:43)
[2017-07-13] MEDS: Spironolactone 25 MG TABLET PO SCH (08:58)
[2017-07-13] MEDS: Furosemide 20 MG/2 ML VIAL IVP SCH (08:58)
[2017-07-13] MEDS: Insulin DETEMIR 100 UNIT/ML X5UNITS SQ SCH (08:58)
[2017-07-13] MEDS: Lactulose Oral Soln 20 GM/30 ML UDC PO SCH ×2 (08:59→21:43)
[2017-07-13] MEDS: Isosorbide MONOnitrate (24 HR) 60 MG TAB.ER.24H PO SCH (08:59)
[2017-07-14 04:53] LABS: Basophils # 0.1 K/mcL (0.0-0.2); Basophils % 0.8 %; Eosinophils # 0.4 K/mcL (0.0-0.6); Eosinophils % 4.7 %; Hematocrit 34.8 % (37.5-50.1); Hemoglobin 11.2 g/dL (12.9-16.9); Immature Granulocytes % 1.1 % (0-4); Lymphocytes # 1.3 K/mcL (0.6-4.6); Lymphocytes % 17.2 %; Mean Corpuscular HGB Conc 32.2 g/dL (31.6-35.5); Mean Corpuscular Hemoglobin 27.9 pg (28.0-33.3); Mean Corpuscular Volume 86.8 fL (83.0-100.0); Mean Platelet Volume 11.3 fL (9.4-12.4); Monocytes # 0.6 K/mcL (0.0-1.3); Monocytes % 8.2 %; Neutrophils # 5.1 K/mcL (1.6-8.9); Platelet Count 210 K/mcL (140-400); Red Blood Count 4.01 M/mcL (4.19-5.50); Red Cell Distribution Width 14.4 % (11.5-14.5)
[2017-07-14 05:17] LABS: Albumin 3.1 g/dL (3.5-5.0); Albumin/Globulin Ratio 0.8 (1.1-2.2); Bilirubin,Total 0.5 mg/dL (0.2-1.2); Calcium 9.3 mg/dL (8.6-10.8); Globulin 3.8 g/dL (2.4-3.5); Total Protein 6.9 g/dL (6.0-8.3)
[2017-07-14 05:26] LABS: Potassium 4.8 mEq/L (3.5-4.5)
[2017-07-14] MEDS: *HR* OxyCODONE ER (12 HR) 10 MG TABLET PO SCH (05:59)
[2017-07-14] MEDS: Insulin LISPRO 300 UNITS/3 ML VIAL SQ SCH ×2 (08:10→12:05)
[2017-07-14] MEDS: Aspirin Enteric Coated 81 MG Tablet PO SCH (08:11)
[2017-07-14] MEDS: Furosemide 20 MG/2 ML VIAL IVP SCH (08:11)
[2017-07-14] MEDS: *HR* Amiodarone 200 MG TABLET PO SCH (08:11)
[2017-07-14] MEDS: APIXABAN 5 MG TABLET PO SCH (08:11)
[2017-07-14] MEDS: Lactulose Oral Soln 20 GM/30 ML UDC PO SCH (08:11)
[2017-07-14] MEDS: Isosorbide MONOnitrate (24 HR) 60 MG TAB.ER.24H PO SCH (08:11)
[2017-07-14] MEDS: Spironolactone 25 MG TABLET PO SCH (08:12)
--- NOTE | 2017-07-14 08:19 | Nephrology Progress Note ---
Date of Encounter: 07/14/17 Time of Encounter: 07:50 - Assessment and Plan (1) Acute renal failure superimposed on stage 3 chronic kidney disease Current Visit: Yes Status: Chronic Baseline creat 1.8-1.9. creat today 2.18. Renal US unremarkable, no renal atrophy. Reviewed with Dr. Spencer, does not believe needs renal artery stenting at this time. Awaiting cardiology input, may transfer care to [facility] where prior interventions done. Continue to monitor. Qualifiers: Acute renal failure type: unspecified Qualified Code(s): N17.9 - Acute kidney failure, unspecified; N18.3 - Chronic kidney disease, stage 3 (moderate) Subjective Interval history: Sitting on edge of bed, eating breakfast. Denies chest pain or SOB. No new complaints. Objective - Vital Signs Vital signs: Vital Signs Temp Pulse Resp BP Pulse Ox 07/14/17 06:54 97.6 F 60 17 131/76 97 07/14/17 03:09 98.0 F 63 17 114/64 99 07/14/17 01:00 97.8 F 60 18 108/61 96 07/13/17 19:49 97.9 F 60 17 102/62 99 07/13/17 16:17 97.6 F 61 17 94/55 94 07/13/17 11:01 97.3 F L 60 18 145/73 95 07/13/17 09:08 91 Intake and Output 07/13/17 07/14/17 07/14/17 23:59 07:59 15:59 Intake Total 120 / 120 240 / 240 Output Total 350 / 350 150 / 150 Balance -230 / -230 90 / 90 Intake: Oral 120 / 120 240 / 240 Output: Urine 350 / 350 150 / 150 Other: Meal Dinner Percent of Meal Consumed 100% Stool Size Moderate Stool Consistency soft Stool Characteristics Normal for Patient Stool Color Yellow Weight 73.7 kg Blood Glucose* 231 190 Patient Weight 07/14/17 23:59 Weight 73.7 kg - General Appearance General appearance: Present: well-developed, well-nourished, appears started age EENT: Present: mucous membranes moist Neck: Present: no JVD Respiratory: Present: clear Cardiology: Present: no edema, regular rate, regular rhythm Gastrointestinal: Present: normoactive bowel sounds, no tenderness Integumentary: Present: warm and dry Neurologic: Present: alert and oriented x3 Psychiatric: Present: mood/affect appropriate, cooperative - Lab 07/14/17 04:01 07/14/17 04:01 Most recent lab results Calcium 9.3 mg/dL (8.6-10.8) 07/14/17 04:01 Consult Discharge Plan - Plan Referrals: [facility] [Primary Care Provider] - 07/14/17 10:00 am (Please fax bryonarge paper work to [phone]-the [facility] 07/14/2017- called and left a message to schedule an appt.)
[2017-07-14] MEDS: Insulin DETEMIR 100 UNIT/ML X5UNITS SQ SCH (08:23)
--- NOTE | 2017-07-14 09:39 | Internal Med Progress Note ---
Date of Encounter: 07/14/17 Time of Encounter: 09:05 - Assessment and plan (1) Systolic and diastolic CHF, acute on chronic Current Visit: Yes Status: Resolved Assessment and plan: - Self-reported history of systolic and diastolic CHF, record showing ejection fraction of 55% from records review in april. - Chest x-ray in the emergency department showed stable cardiomegaly without active process, generalized lower extremity and abdominal edema, resolved upper extremity edema - Recent cardiac workup from january to april of this year including stress test, echo, LHC. repeat echo showed stabe EF of 55%. - BNP of 843, troponin negative - Home O2 set up. Currently tolerating intermittent oxygen mask - Continue Lasix 20 mg IV daily, spironolactone 25 mg daily - Consulted cardiology to further evaluate for worsening CHF 2/2 possible ischemia. Awaiting films from [facility] for engagement mgr (2) Acute renal failure superimposed on stage 3 chronic kidney disease Current Visit: Yes Status: Chronic Assessment and plan: - Reported history of stage III chronic kidney disease, per discussion with nephrology who he follows with, creatinine was 2.51 in April of this year - BUN/creatinine on admission was 41/2.59, this morning was 85/2.18, stable. - Possible etiologies include diabetic nephropathy versus hypertension versus reported renal artery stenosis - Records from [facility] showed b/l decreased KENRICK in renal arteries possibly requiring stenting. Nephro consulted, appreciate recs. Will not stent at this time - Continue gentle diuresis with Lasix 20 mg IV daily and spironolactone 25 Qualifiers: Acute renal failure type: unspecified Qualified Code(s): N17.9 - Acute kidney failure, unspecified; N18.3 - Chronic kidney disease, stage 3 (moderate) (3) Diabetes Current Visit: Yes Status: Acute Assessment and plan: - Low-dose Sliding-scale insulin - A1c of 8.1% Qualifiers: Diabetes mellitus type: type 2 Diabetes mellitus complication status: with circulatory complication Diabetes mellitus complication detail: with other circulatory complications Diabetes mellitus custodial insulin use: with custodial use Qualified Code(s): E11.59 - Type 2 diabetes mellitus with other circulatory complications; Z79.4 - retirement (current) use of insulin (4) A-fib Current Visit: Yes Status: Acute Assessment and plan: - Rate controlled at 60-70 bpm - Anticoagulated on eliquis - Continue carvedilol 25 mg twice a day Qualifiers: Atrial fibrillation type: chronic Qualified Code(s): I48.2 - Chronic atrial fibrillation (5) Peripheral artery disease Current Visit: Yes Status: Acute Assessment and plan: - Stable, continue home meds - Evaluation by cardiology consulted. (6) DVT prophylaxis Current Visit: Yes Status: Acute Assessment and plan: Anticoagulated on eliquis for atrial fibrillation - Time Spent With Patient 25 - 35 minutes - Subjective Interval history: Patient was seen and examined at bedside this morning. He states overall he is feeling very well stolen a strange short of breath. He is able to walk during the night nurses to assist him. He does need to use supplemental oxygen from time to time but states overall he is back to baseline. - Constitutional Vitals: Temp Pulse Resp BP Pulse Ox 97.6 F 60 17 131/76 97 07/14/17 06:54 07/14/17 06:54 07/14/17 06:54 07/14/17 06:54 07/14/17 06:54 General appearance: Present: cooperative, A&O X 3, pleasant Exam: Gen.: Vitals noted. No acute distress. AAOx3 HEENT: PERRL/EOMI, oropharynx clear, Normocephalic, atraumatic Neck: Supple. No adenopathy. Cardiac: Irregularly irregular, no murmur, +S1/S2 Pulmonary: CTA bilaterally, no wheezes, rales or rhonchi, equal chest expansion Abdomen: soft, nontender, BS noted, no guarding Back: Nontender throughout. MSK: ROM intact, no joint swelling noted Extremities: no BLE edema, nontender calf, no cyanosis or clubbing Neuro: A&Ox3, moves all extremities, no focal deficits Psych: Appropriate mood and behavior Internal Medicine: Result - Labs CBC & Chem 7: 07/14/17 04:01 07/14/17 04:01 Labs: Short CBC 07/14/17 Range/Units 04:01 WBC 7.5 (4.3-11.1) K/mcL Hgb 11.2 L (12.9-16.9) g/dL Hct 34.8 L (37.5-50.1) % Plt Count 210 (140-400) K/mcL Neutrophils # 5.1 (1.6-8.9) K/mcL BMP 07/14/17 04:01 Sodium 136 Potassium 4.8 H Chloride 106 Carbon Dioxide 23 BUN 45 H Creatinine 2.18 H Glucose 229 H Calcium 9.3 Liver Function 07/14/17 Range/Units 04:01 Total Bilirubin 0.5 (0.2-1.2) mg/dL AST 26 (5-34) Units/L ALT 32 (0-55) Units/L Alkaline Phosphatase 95 (38-126) Units/L Albumin 3.1 L (3.5-5.0) g/dL - ABG Interpretation ABG results: PT/INR, D-dimer PT 22.9 Seconds (9.4-12.1) H 07/11/17 04:08 D-Dimer 511 ng/mLFEU (0-500) H 07/04/17 03:09 Consult Discharge Plan - Plan Referrals: [facility] [Primary Care Provider] - 07/22/17 10:00 am (Please fax [facility] clearlakearge paper work to [phone]-the [facility] 07/14/2017- called and left a message to schedule an appt.)
[2017-07-14 10:54] VITALS: BP 151/70
--- NOTE | 2017-07-14 11:06 | Discharge Summary ---
<Wallace Reese - Last Filed: 07/14/17 13:00> Date of Encounter: 07/14/17 Time of Encounter: 09:20 - Discharge Diagnosis (1) Systolic and diastolic CHF, acute on chronic Priority: Primary Status: Resolved (2) Acute renal failure superimposed on stage 3 chronic kidney disease Priority: Secondary Status: Chronic Qualifiers: Acute renal failure type: unspecified Qualified Code(s): N17.9 - Acute kidney failure, unspecified; N18.3 - Chronic kidney disease, stage 3 (moderate) (3) Diabetes Priority: Secondary Status: Chronic Qualifiers: Diabetes mellitus type: type 2 Diabetes mellitus complication status: with circulatory complication Diabetes mellitus complication detail: with other circulatory complications Diabetes mellitus retirement insulin use: with retirement use Qualified Code(s): E11.59 - Type 2 diabetes mellitus with other circulatory complications; Z79.4 - group home (current) use of insulin (4) A-fib Priority: Secondary Status: Chronic Qualifiers: Atrial fibrillation type: chronic Qualified Code(s): I48.2 - Chronic atrial fibrillation (5) Peripheral artery disease Priority: Secondary Status: Chronic (6) DVT prophylaxis Priority: Secondary Status: Acute - Discharge Medications Prescriptions: Furosemide [Lasix] 20 mg PO DAILY #30 tablet Lactulose 20 gm PO BID #2 bottle Spironolactone [Aldactone] 25 mg PO DAILY #30 tab Home Medications: Allopurinol [Zyloprim] 300 mg PO QPM 07/04/17 [History] Amiodarone [Cordarone] 200 mg PO DAILY 07/04/17 [History] Apixaban [Eliquis] 5 mg PO BID 07/04/17 [History] Aspirin [Lo-Dose Aspirin EC] 81 mg PO DAILY 07/04/17 [History] Atorvastatin Calcium [Lipitor] 80 mg PO HS 07/04/17 [History] Carvedilol [Coreg] 25 mg PO BID 07/04/17 [History] Cholecalciferol (D-3) [Vitamin D] 1,000 unit PO DAILY 07/04/17 [History] Clopidogrel [Plavix] 75 mg PO DAILY 07/04/17 [History] Insulin Glargine [Lantus] 25 unit SQ DAILY 07/04/17 [History] Isosorbide MONOnitrate (24 HR) [Imdur] 60 mg PO DAILY 07/04/17 [History] Linagliptin [Tradjenta] 5 mg PO QPM 07/04/17 [History] NIFEdipine [Nifedipine ER] 90 mg PO DAILY 07/04/17 [History] Nitroglycerin [Nitrostat] 0.4 mg SL Q5M PRN 07/04/17 [History] Omeprazole [PriLOSEC] 20 mg PO DAILY 07/04/17 [History] Oxycodone HCl 10 mg PO BID PRN 07/04/17 [History] Furosemide [Lasix] 20 mg PO DAILY #30 tablet 07/14/17 [Rx] Lactulose 20 gm PO BID #2 bottle 07/14/17 [Rx] Spironolactone [Aldactone] 25 mg PO DAILY #30 tab 07/14/17 [Rx] Allergies/Adverse Reactions: 3 Allergy/AdvReac Type Severity Reaction Status Date / Time morphine AdvReac Unknown See Verified 07/04/17 02:45 Comments Date of admission: 07/06/17 16:22 Primary care physician: PCP [facility] Consults: 07/07/17 11:38 Consult to Occupational Therapy [CONS] Routine Comment: Evaluate, develop and implement POC Reason for Consult: evaluate and treat for weakness. Consult to Physical Therapy [CONS] Routine Comment: Evaluate, develop and implement POC Reason for Consult: evaluate and treat for weakness 07/09/17 16:30 Consult to Cardiology [CONS] Routine Comment: Consulting Provider: Aydin Bullock Reason for Consult: CHF exacerbation with significant atherosclerosis Call Completed: Yes Discharging clinician: Wallace Reese Anticipated date of discharge: 07/14/17 - Patient Status Disposition: Home, Self-Care Condition: Fair Functional capacity at discharge: independent ambulation Overall status at discharge: patient is back to baseline - Discharge Instructions Instructions: Acute Kidney Injury (DC), Peripheral Vascular Disorders (DC) Follow Up With: Weston Spencer DO [Non-Partnered Physician] - 09/09/17 2:00 pm (Per Herminia Ballard, patient's renal function is stable at this time, and patient can keep scheduled appt in August.) ID,PCP [Primary Care Provider] - 07/22/17 10:00 am (Please fax dicharge paper work to [phone]-the [facility] ) - Diet and Activity Activity: as per physical therapy, increase activity as tolerated, resume usual activities as tolerated Diet: advance to your usual diet, low salt diet Hospital course: Mr. Pisano is a 77 year old male who presented to the emergency department with complaint of shortness of breath. He stated that he was discharged from [facility] inpatient service the day prior and stated that he was having "kidney issues and that he needed a renal artery stent replaced". He states that he was having a hard time breathing because he had gotten fluids while admitted and that he was swelling. He does have very significant past medical cardiac history including systolic heart failure, coronary artery disease with multiple stents including coronaries, external iliacs bilateral and carotid bilateral, CABG. The emergency department, vital signs are significant for oxygen saturation 100% on 2 L. And results were significant for an H&H of 11.2/33.6, BUN/creatinine of 41/2.59, glucose of 235, d-dimer 511, BNP of 843. Venous blood gas showed a pH of 7.40, PCO2 59, PO2 of 38, HCO3 of 36.5. Patient was admitted to medicine service for further evaluation management of congestive heart failure exacerbation in the setting of acute kidney injury on chronic kidney disease. During course of hospital stay, patient's symptoms gradually improved with Lasix and spironolactone and fluid restriction. Nephrology was consulted during hospital stay, as well as cardiology. After requesting in reviewing records from ID and [facility], no further inpatient action will be taken at this time. Nephrology determined that given his improved kidney function back to baseline, no renal artery stenting is recommended at this time. Cardiology will not undergo intervention at this time. Next course of action will need to be undergone at a higher level facility such as [facility], and will need to be arranged to the ID. Patient was discharged in stable medical condition with complete resolution of his symptoms. He was instructed to follow-up with his primary care physician regarding further care and management of his chronic medical conditions. He was instructed to follow up to emergency department if his symptoms should worsen. - Time Spent with Patient Total time spent providing and/or coordinating discharge services: 40 minutes - Constitutional Vitals: Temp Pulse Resp BP Pulse Ox 97.5 F L 68 18 151/70 93 07/14/17 10:49 07/14/17 10:49 07/14/17 10:49 07/14/17 10:49 07/14/17 10:49 General appearance: Present: cooperative, A&O X 3, pleasant Exam: Gen.: Vitals noted. No acute distress. AAOx3 HEENT: PERRL/EOMI, oropharynx clear, Normocephalic, atraumatic Neck: Supple. No adenopathy. Cardiac: RRR, no murmur, +S1/S2 Pulmonary: CTA bilaterally, no wheezes, rales or rhonchi, equal chest expansion Abdomen: soft, nontender, BS noted, no guarding Back: Nontender throughout. MSK: ROM intact, no joint swelling noted Extremities: no BLE edema, nontender calf, no cyanosis or clubbing Neuro: A&Ox3, moves all extremities, no focal deficits Psych: Appropriate mood and behavior <Alli Hobbs P - Last Filed: 07/14/17 18:52> Date of Encounter: 07/14/17 - Discharge Diagnosis (1) Acute renal failure superimposed on stage 3 chronic kidney disease Status: Chronic Qualifiers: Acute renal failure type: unspecified Qualified Code(s): N17.9 - Acute kidney failure, unspecified; N18.3 - Chronic kidney disease, stage 3 (moderate) (2) Diabetes Status: Chronic Qualifiers: Diabetes mellitus type: type 2 Diabetes mellitus complication status: with circulatory complication Diabetes mellitus complication detail: with other circulatory complications Diabetes mellitus retirement insulin use: with retirement use Qualified Code(s): E11.59 - Type 2 diabetes mellitus with other circulatory complications; Z79.4 - group home (current) use of insulin (3) A-fib Status: Chronic Qualifiers: Atrial fibrillation type: chronic Qualified Code(s): I48.2 - Chronic atrial fibrillation (4) DVT prophylaxis Status: Acute (5) PAD (peripheral artery disease) Status: Acute Date of admission: 07/06/17 16:22 Primary care physician: [facility] Consults: 07/07/17 11:38 Consult to Occupational Therapy [CONS] Routine Comment: Evaluate, develop and implement POC Reason for Consult: evaluate and treat for weakness. Consult to Physical Therapy [CONS] Routine Comment: Evaluate, develop and implement POC Reason for Consult: evaluate and treat for weakness 07/09/17 16:30 Consult to Cardiology [CONS] Routine Comment: Consulting Provider: Cardiology Ara Reason for Consult: CHF exacerbation with significant atherosclerosis Call Completed: Yes Hospital course: Mr. Pisano is a 77 year old male - Time Spent with Patient Total time spent providing and/or coordinating discharge services: - Constitutional Vitals: Temp Pulse Resp BP Pulse Ox 97.5 F L 68 18 151/70 93 07/14/17 10:49 07/14/17 10:49 07/14/17 10:49 07/14/17 10:49 07/14/17 10:49 - Attending Attestation I examined this patient and my medical decision-making was reviewed with the Resident Physician. I agree with the documented findings, disposition and treatment plan as described except to the extent set forth below. I spoke with interventional cardiology Dr. Soriano. Today we reviewed cath films which was sent from [facility]. No intervention at this time as per Dr. Soriano. Patient will have intermittent chest pain. Temperature recommended if pain gets worse and medical management does not help then referred him tertiary center for further evaluation. I spoke with patient's PCP from [facility]. ( Dr Nam) Explained at length the course in this hospital. If patient gets clinically was then patient needs to go to [facility] for further evaluation. Patient's PCP understood the plan and will work accordingly. All above was explained to the patient Patient verbalizes understanding and agreed with the plan
== END 2017-07-14 13:30 | disposition home or self-care (01) | DRG 291 ==
LOC: EMEROO 02:37 → 2ANU 02:37 → SUATTDRO 07-06 16:22
PROVIDERS: ADMIT Internal Medicine; ATTEND Internal Medicine